=== PATIENT | female | born 1950 | race Caucasian/White ===

== ENCOUNTER → 2017-04-27 | Outpatient (CLI) | payer MEDICARE ==
--- NOTE | 2017-05-02 21:38 | REP ---
Clinical: Decreased pedal pulses. Technique: Real-time velez scale and color Doppler evaluation using linear high frequency transducer. Findings: Velez scale images demonstrate extensive partially calcified atheromatous plaquing and visible narrowing involving the visualized distal aorta through the bifurcation to proximal left internal and external iliac arteries as well as from the left common femoral artery through the visualized mid calf. Doppler interrogation demonstrates monophasic wave patterns with decreased velocities and spectral broadening consistent with diffuse significant stenosis and atherosclerotic disease. Impression: Findings suggesting significant stenosis to the left lower extremity. Signed by Pipe Lucas MD 05/02/2017 09:30 P
== END ==
LOC: M RAD 11:25
PROVIDERS: ATTEND Surgery Vascular Surgery
DX: I70.0 Atherosclerosis of aorta (principal); I70.202 Unspecified atherosclerosis of native arteries of extremities, left leg

== ENCOUNTER → 2017-06-14 | Outpatient (CLI) | payer MEDICARE ==
[2017-06-14 11:12] LABS: MEAN CORPUSCULAR HEMOGLOBIN 30.5 pg (27.0-33.0); MEAN CORPUSCULAR HGB CONC 33.5 g/dl (32.0-36.5); PLATELET COUNT, AUTOMATED 438 10^3/uL (150-450); RED CELL DISTRIBUTION WIDTH 13.5 % (11.5-14.5); WHITE BLOOD COUNT 12.6 10^3/uL (4.0-10.0)
[2017-06-14 11:39] LABS: ANION GAP 9 MEQ/L (8-16); BLOOD UREA NITROGEN 9 MG/DL (7-18); CALCIUM LEVEL 9.5 MG/DL (8.8-10.2); CARBON DIOXIDE LEVEL 24 MEQ/L (21-32); CHLORIDE LEVEL 108 MEQ/L (98-107); CREATININE FOR GFR 0.64 MG/DL (0.55-1.02); GLOMERULAR FILTRATION RATE > 60.0 (>45); GLUCOSE, FASTING 109 MG/DL (80-110); POTASSIUM SERUM 4.7 MEQ/L (3.5-5.1); SODIUM LEVEL 141 MEQ/L (136-145)
== END ==
LOC: M LAB 10:05
PROVIDERS: ATTEND Surgery Vascular Surgery
DX: I70.213 Atherosclerosis of native arteries of extremities with intermittent claudication, bilateral legs (principal)

== ENCOUNTER → 2017-06-27 | Outpatient (CLI) | payer MEDICARE ==
[~2017-06-27] MED LIST: CELE1CAP4 PO; HEPARIN 1,000 UNITS/ML 10ML VIAL (FOR RADIOLOGY& DIALYSIS ONLY) As Ordered ONE; IMOD2CAP PO; ISOVUE-300 61% 50ML VIAL (Q9967) As Ordered ONE; MIDAZOLAM INJ 2 MG/2 ML VIAL (J2250) As Ordered ONE; PROTAMINE SULF INJ 50 MG/5 ML VIAL (J2720) As Ordered ONE; VITA100067 PO; fentaNYL 100 MCG/2 ML INJECTION (J3010) As Ordered ONE
--- NOTE | 2017-07-05 11:54 | REPIR ---
DATE OF PROCEDURE: 06/27/2017 PREPROCEDURE DIAGNOSIS: Left lower extremity claudication. POSTPROCEDURE DIAGNOSIS: Left lower extremity claudication plus aortoiliac arterial atherosclerotic occlusive disease. PROCEDURE: Aortogram, iliofemoral angiogram, bilateral lower extremity angiography, Mynx closure of the right common femoral arteriotomy. SURGEON: Dr. Waqar Rehman. MARKETING COMMUNICATIONS MANAGER: Bree Wing and Lorene Maynard. ANESTHESIA: Local with moderate sedation with 2 mg of Versed, 100 mcg of Fentanyl and 10 mL of 2% lidocaine. ESTIMATED BLOOD LOSS: FLUORO TIME: 1.4 minutes. CONTRAST: 15 mL. SEDATION TIME: From 9:10 a.m. to 9:45 a.m. for a total of 35 minutes. COMPLICATIONS: None. DRAINS: None. SPECIMENS: None. CONTRAST: 18 mL. IMPLANTS: Right femoral artery Mynx closure device. INDICATION: Patient is a 66-year-old female with left lower extremity pain and nonpalpable pulses in the left lower extremity and weak femoral pulses bilaterally. Patient will undergo an angiogram with possible angioplasty and/or stent. Risks, benefits and alternative treatment options were discussed with the patient. PROCEDURE: The patient was taken to the angiography suite and placed supine on the angiography room table and then prepped and draped in a standard surgical fashion. A time out was completed confirming the correct patient, procedure and laterality. The right common femoral artery was then cannulated with a micropuncture needle after anesthetizing the overlying skin with 1% lidocaine. The micropuncture wire was advanced through the micropuncture needle which was upsized to a micropuncture sheath. A Bentson wire was advanced through the micropuncture sheath which was upsized to a #5-Syriac sheath. An Omniflush catheter was placed in the aorta and an aortogram was performed. Catheter was then pulled down to the level of the bifurcation of iliac arteries and an iliofemoral angiogram was performed. Catheter was then removed over a Bentson wire after bilateral lower extremity angiography was performed. A Mynx closure device was used to close the arteriotomy in the right common femoral artery with an additional 10 minutes of adjunctive pressure applied for hemostasis. Dressings were then applied. Patient tolerated the procedure well. All instrument, sponge and needle counts were correct at the end of the case. There were no complications. Dr. Rehman was present for and directed the entire case. Patient was transferred to the holding area and subsequently discharged in stable condition. RADIOLOGIC SUPERVISION INTERPRETATION: The initial aortogram showed complete occlusion of the left common and external iliac artery with reconstitution of the common femoral artery distally. There was severe disease along the course of the right common iliac and external iliac artery with good flow noted in both the right and left common femoral profunda femoris and superficial femoral arteries down to the knee where there was difficulty with visualization due to contrast washout. A Mynx closure device was used to close the arteriotomy in the right common femoral artery.
== END | disposition home or self-care (01) ==
LOC: M IRPRO 08:29
PROVIDERS: ATTEND Surgery Vascular Surgery
DX: I70.212 Atherosclerosis of native arteries of extremities with intermittent claudication, left leg (principal); I70.92 Chronic total occlusion of artery of the extremities; I70.0 Atherosclerosis of aorta
CPT/HCPCS: 36200; 75716; C1760; C1769; C1887; C1894; G0269; J2250; J3010; Q9967

== ENCOUNTER 2017-07-21 12:29 | Inpatient (IN) | payer MEDICARE ==
[~2017-07-21] VITALS: Ht 157.5 cm; Wt 46.6 kg
[~2017-07-21 12:29] MED LIST changes: -HEPARIN 1,000 UNITS/ML 10ML VIAL (FOR RADIOLOGY& DIALYSIS ONLY) As Ordered ONE; -ISOVUE-300 61% 50ML VIAL (Q9967) As Ordered ONE; -MIDAZOLAM INJ 2 MG/2 ML VIAL (J2250) As Ordered ONE; -PROTAMINE SULF INJ 50 MG/5 ML VIAL (J2720) As Ordered ONE; -fentaNYL 100 MCG/2 ML INJECTION (J3010) As Ordered ONE
[2017-07-21] MEDS ORDERED: LR 1,000 ML IV ONE (13:00)
--- NOTE | 2017-07-21 15:28 | HPEPDOC ---
General Date of Admission Jul 21, 2017 at 12:29 Primary Care Physician: A Attending Physician: Waqar Rehman MD Chief Complaint The patient is a 66-year-old female admitted with left lower extremity debilitating claudication, right lower extremity claudication, severe aortoiliac arterial atherosclerotic occlusive disease with complete occlusion of her left common iliac and external iliac arteries. Source: Patient, Old records Exam Limitations: No limitations Severity: Severe History of Present Illness Patient is a 66-year-old female who was initially evaluated for severe debilitating left lower extremity claudication as well as right lower extremity claudication. Patient underwent angiography showing complete occlusion of her left common external iliac artery with reconstitution of the left common femoral artery. He was severe disease in the right external iliac artery and common femoral artery with reconstitution of the right for fundus femoris artery via collaterals which retrograde filling into the common femoral artery and superficial femoral artery. Patient was evaluated and recommendation was to undergo a left axillobifemoral bypass graft to treat her severe aortoiliac atherosclerotic arterial occlusive disease. Home Medications Scheduled Celecoxib (Celebrex) 200 Mg Cap, 200 MG PO BID, (Reported) Vitamin D (Vitamin D) 1,000 Unit Cap, 1,000 UNIT PO BID, (Reported) Scheduled PRN (Imodium A-D) 2 Mg Cap, 2 MG PO PRN PRN for DIARRHEA, (Reported) Allergies Coded Allergies: No Known Allergies (Verified , 07/11/17) Past Medical History Medical History Anxiety Impression Cervical cancer. Surgical History Removal of neck mass Cataract surgery bilaterally Aortogram and Left lower extremity angiography on 06/27/2017 Resection of cervical cancer Family History Significant Family History: Heart disease, Hypertension Father has a history of coronary artery disease and hypertension and is Mother has a history of a brain tumor and is Social History * Smoker: current smoker, greater than 1 pack/day, cigarettes Alcohol: Denies Drugs: denies Recent Travel/Sick Contacts: Denies: Recent travel, Recent sick contacts Psychosocial History: No pertinent psych hx Patient has smoked cigarettes for approximately 30 years and smokes approximately 1 pack per day Review of Symptoms Constitutional: Denies: Chills, Fever, Malaise, Night Sweats, Weakness, Fatigue , Weight Loss, Lethargy, Other Eyes: Denies: Pain, Vision change, Conjunctivae inflammation, Eyelid inflammation, Redness, Other ENT: Denies: Head Aches, Ear Pain, Dysphagia, Sinus Congestion, Post Nasal Drip , Sore Throat, Epistaxis, Other Symptoms Skin: Denies: Rash, Lesions, Jaundice, Bruising, Itching, Dry, Breakdown, Nail Changes, Other Pulmonary: Denies: Dyspnea, Cough, Pleuritic Chest Pain, Other Symptoms Cardiovascular: Denies: Chest Pain, Palpitations, Orthopnea, Paroxysmal Noc. Dyspnea, Edema, Lt Headedness, Other Symptoms Gastrointestinal: Denies: Nausea, Vomiting, Abdominal Pain, Diarrhea, Constipation, Melena, Hematochezia, Other Symptoms Genitourinary: Denies: Dysuria, Frequency, Incontinence, Hematuria, Retention, Other Symptoms Hematologic: Denies: Bruising, Bleeding Excessively, Petecchia, Purpura, Enlarged Lymph Nodes, Other Hematologic Endocrine: Denies: Polydipsia, Polyphagia, Polyuria, Heat Intolerance, Cold Intolerance, Other Endocrine Sx Musculoskeletal: Denies: Neck Pain, Back Pain, Shoulder Pain, Arm Pain, Hand Pain, Leg Pain, Foot Pain, Joint Pain, Muscle Pain, Spasms, Other Symptoms Neurological: Reports: Numbness, Denies: Weakness, Incoordination, Change in speech, Confusion, Seizures, Other Symptoms Psych: Denies: Mood Normal, Anxiety, Depression, Memory Issues, Thoughts of Self Harm, Anger, Thoughts of Harming Other, Other Psych Physical Examination General Exam: Positive: Alert, Cooperative, No Acute Distress Eye Exam: Positive: PERRLA, Conjunctiva & lids normal, EOMI ENT Exam: Positive: Atraumatic, Mucous membr. moist/pink, Pharynx Normal, Tongue Midline Neck Exam: Positive: Supple, +2 carotid pulse wo bruit, Negative: JVD, thyromegaly, Lymphadenopathy, Other Chest Exam: Positive: Clear to auscultation, Normal air movement Heart Exam: Positive: Rate Normal Telemetry: Positive: No significant arrhythmia Abdomen Exam: Positive: Normal bowel sounds, BS Hyperactive, BS Hypoactive, Soft, Other, Negative: Tenderness, Hepatospenomegaly, Mass, Hernia Extremity Exam: Positive: Normal pulses, Negative: Clubbing, Cyanosis, Edema, Tenderness, Swelling, Other Skin Exam: Positive: Nl turgor and temperature, Negative: Rash, Breakdown, Lesion, Pruritus, Other skin issue Neuro Exam: Positive: Normal Speech, Normal Tone, Sensation Intact, Cranial Nerves 3-12 NL Psych Exam: Positive: Mental status NL, Mood NL Other physical findings Patient has nonpalpable pulses in the bilateral lower extremities with dopplerable common femoral popliteal dorsalis pedis and posterior tibial pulses. Vital Signs Vital Signs Date Time Temp Pulse Resp B/P (MAP) Pulse Ox O2 Delivery O2 Flow Rate FiO2 07/21/17 13:58 98.4 104 18 132/72 (92) 94 Room Air Assessment/Plan Patient is a 66-year-old female with significant tobacco history and atherosclerotic aortoiliac occlusive disease with complete occlusion of her left common and external iliac arteries and severe atherosclerotic occlusive disease in the right external iliac artery and common femoral artery. Patient will undergo a left axillobifemoral bypass graft. Risks benefits and alternative treatment options were discussed with the patient. Benefits included but were not limited to hindu of blood flow to the lower extremities with resolution of her symptoms and ability to ambulate better. Alternative treatment options included but were not limited to no intervention. Risks included but were not limited to infection, bleeding, renal failure requiring hemodialysis, possible need for further surgical intervention, pneumothorax, hemothorax, cerebrovascular accident, myocardial infarction, pulmonary embolus, DVT, loss of limb, loss of life and poor outcome. Patient's questions were answered. Patient voices understanding of these risks, benefits and alternative treatment options and agrees to proceed with a left axillobifemoral bypass graft. Plan / VTE VTE Prophylaxis Ordered?: Yes Waqar Rehman MD Jul 21, 2017 15:28
[2017-07-21] MEDS ORDERED: LIDOCAINE 1% SDV INJ 30 ML VIAL As Ordered ONE (18:24)
[2017-07-21] MEDS ORDERED: BUPIVACAINE HCL 0.25% 30 ML VIAL As Ordered ONE (18:24)
[2017-07-21] MEDS ORDERED: THROMBIN SOLN 20,000 UNITS KIT As Ordered ONE (18:24)
[2017-07-21] MEDS ORDERED: PROTAMINE SULF INJ 50 MG/5 ML VIAL (J2720) As Ordered ONE (18:24)
[2017-07-21] MEDS ORDERED: HEPARIN SOD (PORCINE) 5000 UNITS/ML VIAL As Ordered ONE ×2 (18:25→19:43)
[2017-07-21] MEDS ORDERED: PROPOFOL 200 MG/20 ML VIAL As Ordered ONE ×3 (18:27→21:04)
[2017-07-21] MEDS ORDERED: LIDOCAINE 2% INJ 100 MG/5 ML SDV (FOR ANES.) As Ordered ONE (18:27)
[2017-07-21] MEDS ORDERED: ONDANSETRON 4MG/2ML VIAL (J2405) As Ordered ONE (18:27)
[2017-07-21] MEDS ORDERED: KETAMINE HCL 200 MG/20 ML VIAL As Ordered ONE (18:28)
[2017-07-21] MEDS ORDERED: MIDAZOLAM INJ 5 MG/ML VIAL (J2250) As Ordered ONE (18:28)
[2017-07-21] MEDS ORDERED: fentaNYL 100 MCG/2 ML INJECTION (J3010) As Ordered ONE ×2 (18:28→20:24)
[2017-07-21] MEDS ORDERED: dexameTHASONE 4 MG/ML 1ML VIAL (J1100) As Ordered ONE (19:29)
[2017-07-21] MEDS ORDERED: ESMOLOL INJ 100MG/10ML VIAL As Ordered ONE (19:36)
[2017-07-21] MEDS ORDERED: ACETAMINOPHEN TAB 650MG DOSE (2X325MG) PO PRN (22:00)
[2017-07-21] MEDS ORDERED: METOCLOPRAMIDE INJ 10MG/2ML VIAL (J2765) IV PRN (22:00)
[2017-07-21] MEDS ORDERED: ONDANSETRON 4MG/2ML VIAL (J2405) IV PRN (22:00)
[2017-07-21] MEDS: LR 1,000 ML IV SCH ×3 (22:00→23:00)
[2017-07-21] MEDS ORDERED: MEPERIDINE INJ 25 MG/ML VIAL (J2175) IV PRN (22:00)
[2017-07-21] MEDS ORDERED: PERCOCET 5MG/325MG TAB PO PRN (22:00)
[2017-07-21] MEDS ORDERED: fentaNYL 100 MCG/2 ML INJECTION (J3010) IV PRN (22:00)
[2017-07-21 22:48] VITALS: BP 152/70
[2017-07-21] MEDS: LIDOCAINE 1% MDV 20ML VIAL SQ PRN ×2 (22:56→23:00)
[2017-07-21 23:18] VITALS: BP 138/73
[2017-07-22] VITALS (9 sets, daily range): BP systolic 92–121; BP diastolic 57–67
[2017-07-22] MEDS: NORCO, ANEXSIA 5/325MG TABLET (HYDROcodone/ACETAMINOPHEN) PO PRN ×3 (03:58→22:33)
[2017-07-22] MEDS: HEPARIN SOD (PORCINE) 5000 UNITS/ML VIAL SC SCH ×2 (09:07→22:32)
[2017-07-22] MEDS: ONDANSETRON 4MG/2ML VIAL (J2405) IV PRN (17:26)
[2017-07-23] MEDS: ONDANSETRON 4MG/2ML VIAL (J2405) IV PRN (00:19)
[2017-07-23 02:00] VITALS: BP 124/59
[2017-07-23] MEDS: NORCO, ANEXSIA 5/325MG TABLET (HYDROcodone/ACETAMINOPHEN) PO PRN ×3 (03:07→16:43)
[2017-07-23 06:00] VITALS: BP 126/57
[2017-07-23] MEDS: HEPARIN SOD (PORCINE) 5000 UNITS/ML VIAL SC SCH ×2 (08:34→21:07)
[2017-07-23] MEDS ORDERED: INFLUENZA VIRUS VACCINE HIGH DOSE 0.5 ML SYRINGE (90662) IM ONE (09:00)
[2017-07-23] MEDS ORDERED: PREVNAR 13 VACCINE SYRINGE (CPT CODE:90670) IM ONE (09:00)
[2017-07-23 10:00] VITALS: BP 106/57
[2017-07-23 14:00] VITALS: BP 102/58
[2017-07-23 18:00] VITALS: BP 103/61
[2017-07-23 22:00] VITALS: BP 105/59
[2017-07-24] MEDS: NORCO, ANEXSIA 5/325MG TABLET (HYDROcodone/ACETAMINOPHEN) PO PRN ×3 (01:31→21:59)
[2017-07-24 02:00] VITALS: BP 93/52
[2017-07-24 06:00] VITALS: BP 102/59
[2017-07-24] MEDS: HEPARIN SOD (PORCINE) 5000 UNITS/ML VIAL SC SCH ×2 (08:38→21:57)
[2017-07-24 10:00] VITALS: BP 103/52
[2017-07-24 14:00] VITALS: BP 131/68
[2017-07-24 22:00] VITALS: BP 111/59
[2017-07-25 02:00] VITALS: BP 111/59
[2017-07-25] MEDS: NORCO, ANEXSIA 5/325MG TABLET (HYDROcodone/ACETAMINOPHEN) PO PRN ×3 (02:03→23:11)
[2017-07-25 06:00] VITALS: BP 108/68
[2017-07-25] MEDS ORDERED: ONDANSETRON 4 MG TAB (S0181) PO PRN (08:30)
[2017-07-25 10:00] VITALS: BP 90/50
[2017-07-25] MEDS: SENOKOT S TAB PO SCH ×2 (10:45→20:50)
[2017-07-25] MEDS: HEPARIN SOD (PORCINE) 5000 UNITS/ML VIAL SC SCH ×2 (10:46→20:49)
[2017-07-25] MEDS: METOPROLOL TART 25 MG TABLET PO SCH ×2 (11:34→20:50)
[2017-07-25 13:54] VITALS: BP 91/55
[2017-07-25 18:00] VITALS: BP 107/53
[2017-07-25 22:00] VITALS: BP 135/60
[2017-07-26 02:00] VITALS: BP 106/57
[2017-07-26 06:00] VITALS: BP 104/56
[2017-07-26] MEDS: NORCO, ANEXSIA 5/325MG TABLET (HYDROcodone/ACETAMINOPHEN) PO PRN ×2 (06:42→21:46)
[2017-07-26] MEDS: SENOKOT S TAB PO SCH ×2 (08:48→21:00)
[2017-07-26 09:00] VITALS: BP 126/62
[2017-07-26] MEDS: METOPROLOL TART 25 MG TABLET PO SCH ×2 (09:00→21:45)
[2017-07-26] MEDS: HEPARIN SOD (PORCINE) 5000 UNITS/ML VIAL SC SCH ×2 (09:00→21:43)
[2017-07-26 22:00] VITALS: BP 103/56
[2017-07-27] VITALS (7 sets, daily range): BP systolic 90–118; BP diastolic 44–61
[2017-07-27] MEDS: SENOKOT S TAB PO SCH ×2 (09:00→20:38)
[2017-07-27] MEDS: METOPROLOL TART 25 MG TABLET PO SCH ×2 (10:26→20:38)
[2017-07-28] MEDS: NORCO, ANEXSIA 5/325MG TABLET (HYDROcodone/ACETAMINOPHEN) PO PRN (00:56)
[2017-07-28 06:00] VITALS: BP 102/51
[2017-07-28] MEDS: SENOKOT S TAB PO SCH (08:16)
[2017-07-28 08:34] VITALS: BP 95/57
[2017-07-28] MEDS: METOPROLOL TART 25 MG TABLET PO SCH (08:34)
[2017-07-28 10:00] VITALS: BP 90/55
[2017-07-28] MEDS ORDERED: NORCOTAB PO (11:20)
[2017-07-28] MEDS ORDERED: METO1TAB87 PO (11:20)
--- NOTE | 2017-08-10 20:55 | DSES ---
DATE OF ADMISSION: 07/21/2017 DATE OF DISCHARGE: 07/28/2017 PROCEDURES PERFORMED DURING ADMISSION: Left axillobifemoral bypass graft. HOSPITAL COURSE: The patient was admitted. Underwent a left axillobifemoral bypass graft for severe aortoiliac occlusive disease and bilateral lower extremity claudication. Patient did well postoperatively and was near nonambulatory upon admission, but by the end of her hospitalization the patient was ambulating without pain and with much better ease. Patient was discharged to home with instructions to followup in 1 week.
--- NOTE | 2017-08-11 12:13 | RO ---
DATE OF PROCEDURE: 07/21/2017 PREPROCEDURE DIAGNOSES: Aortoiliac occlusive disease with severe atherosclerotic occlusive disease in the right common and external iliac artery, occlusion of the left common iliac, external iliac and common femoral artery. Left lower extremity claudication. History of cigarettes. POSTPROCEDURE DIAGNOSES: Aortoiliac occlusive disease with severe atherosclerotic occlusive disease in the right common and external iliac artery, occlusion of the left common iliac, external iliac and common femoral artery. Left lower extremity claudication. History of cigarettes. PROCEDURE: Left axillobifemoral bypass grafting with 8 mm Propaten PTFE graft. ATTENDING SURGEON: Dr. Michael Remhan SUPERVISOR TYPE BAR AND SEGMENT: None. INDICATION: The patient is a 66-year-old female who presented with left lower extremity claudication and unstable knee, as well as buttock and thigh pain. The patient also complained of mild right lower extremity claudication. The patient was initially evaluated for a left knee total knee arthroplasty and was found to have no pulses and poor perfusion in her lower extremities and was sent for vascular evaluation. The patient underwent an ultrasound showing monophasic flow in both lower extremities and subsequently underwent an angiogram showing complete occlusion of her left common iliac, external iliac, and common femoral artery with reconstitution of the profunda femoris and superficial femoral artery on the left. The right common and external iliac artery showed high grade near occlusive stenosis as well. The patient was evaluated and felt to be a good candidate for a left axillobifemoral bypass, possible right axillobifemoral bypass. ANESTHESIA: Local MAC. ESTIMATED BLOOD LOSS: 200 mL. IV FLUIDS: 1200 mL. HEPARIN: 6000 units. COMPLICATIONS: None. DRAINS: None. SPECIMENS NONE: IMPLANTS: Left axillobifemoral bypass graft. PROCEDURE: The patient was taken to the operating room and placed supine on the operating room table and prepped and draped in a standard surgical fashion. Bilateral common femoral arterial exposures were performed through oblique incisions in the inguinal region. The left axillary artery was exposed through an infraclavicular incision on the left. The graft was tunneled from the axillary artery to the bilateral femoral arteries, after which the graft was anastomosed to the axillary artery in an end to side fashion using #6-0 Prolene suture. The graft was then anastomosed to the bilateral common femoral arteries in an end to side fashion using #6-0 Prolene suture. Flow was reestablished with good flow through the graft into both common femoral arteries and distally with improved perfusion of the lower extremities. The incisions were closed using #2-0 Vicryl to approximate the deeper layers and marilu to approximate the skin. Dressings were applied. The patient tolerated the procedure well. All instrument, sponge, and needle counts were correct at the end of the case. There were no complications. Dr. Rehman was present for and directed the entire case. The patient was transferred to the recovery room and subsequently to the floor in stable condition.
== END 2017-07-28 13:28 | disposition home or self-care (01) | DRG 253 ==
LOC: M OR 12:29 → M MSPAV 21:45
PROVIDERS: ADMIT Surgery Vascular Surgery; ATTEND Surgery Vascular Surgery
PROC: 03160J8 Bypass Left Axillary Artery to Bilateral Upper Leg Artery with Synthetic Substitute, Open Approach (ICD-10-PCS; principal; 2017-07-21 15:45)
DX: I74.09 Other arterial embolism and thrombosis of abdominal aorta (principal); I74.5 Embolism and thrombosis of iliac artery; I70.213 Atherosclerosis of native arteries of extremities with intermittent claudication, bilateral legs; F17.210 Nicotine dependence, cigarettes, uncomplicated; Z79.899 Other long term (current) drug therapy; Z98.41 Cataract extraction status, right eye; Z98.42 Cataract extraction status, left eye; Z85.41 Personal history of malignant neoplasm of cervix uteri

== ENCOUNTER → 2017-09-19 | Outpatient (CLI) | payer MEDICARE | LOC: M RAD 12:12 | DX: I70.213 Atherosclerosis of native arteries of extremities with intermittent claudication, bilateral legs (principal); Z95.5 Presence of coronary angioplasty implant and graft | CPT/HCPCS: 93923 ==

== ENCOUNTER 2017-10-09 12:02 | Emergency (ER) | payer MEDICARE ==
[2017-10-09] MEDS: PERCOCET 5MG/325MG TAB PO (13:10)
[2017-10-09 13:17] LABS: HEMATOCRIT 38.7 % (36.0-47.0); HEMOGLOBIN 12.8 g/dl (12.0-16.0); MEAN CORPUSCULAR HGB CONC 33.1 g/dl (32.0-36.5); MEAN CORPUSCULAR VOLUME 87.8 fl (80.0-96.0); PLATELET COUNT, AUTOMATED 347 10^3/uL (150-450); RED BLOOD COUNT 4.41 10^6/uL (4.00-5.40); RED CELL DISTRIBUTION WIDTH 13.7 % (11.5-14.5); WHITE BLOOD COUNT 11.4 10^3/uL (4.0-10.0)
[2017-10-09 13:33] LABS: INR 0.99; PROTHROMBIN TIME 13.2 SECONDS (12.4-14.5)
[2017-10-09 13:50] LABS: ANION GAP 8 MEQ/L (8-16); BLOOD UREA NITROGEN 9 MG/DL (7-18); CALCIUM LEVEL 9.2 MG/DL (8.8-10.2); CARBON DIOXIDE LEVEL 24 MEQ/L (21-32); CHLORIDE LEVEL 109 MEQ/L (98-107); CREATININE FOR GFR 0.45 MG/DL (0.55-1.30); GLOMERULAR FILTRATION RATE > 60.0 (>45); GLUCOSE, FASTING 110 MG/DL (70-100); POTASSIUM SERUM 3.9 MEQ/L (3.5-5.1); SODIUM LEVEL 141 MEQ/L (136-145)
== END 2017-10-09 15:05 | disposition home or self-care (01) ==
LOC: M ED 12:02
DX: M17.11 Unilateral primary osteoarthritis, right knee (principal); M70.51 Other bursitis of knee, right knee; I10 Essential (primary) hypertension; F17.210 Nicotine dependence, cigarettes, uncomplicated; Z79.899 Other long term (current) drug therapy; Z95.5 Presence of coronary angioplasty implant and graft
CPT/HCPCS: 73564

== ENCOUNTER 2019-06-16 08:21 | Emergency (ER) | payer MEDICARE ==
[~2019-06-16] VITALS: Ht 157.5 cm; Wt 31.8 kg
[~2019-06-16 08:21] MED LIST changes: +HYDR-3715 PO; +METO1TAB87 PO
[2019-06-16] MEDS ORDERED: diphenhydrAMINE INJ 50MG/ML VIAL (J1200) IV ONE (09:15)
[2019-06-16] MEDS ORDERED: methylPREDNISolone INJ 125 MG/2 ML VIAL (J2930) IV ONE (09:15)
[2019-06-16] MEDS ORDERED: FAMOTIDINE IV BAG 20 MG in IV 1 EA IV ONE (09:15)
[2019-06-16 09:30] LABS: BASO # 0.1 10^3/uL (0.0-0.2); BASO % 1.4 % (0.0-1.0); EOS # 0.3 10^3/uL (0.0-0.5); EOS % 2.9 % (0.0-3.0); HEMATOCRIT 38.4 % (36.0-47.0); HEMOGLOBIN 13.1 g/dl (12.0-15.5); LYMPH # 1.4 10^3/uL (1.5-5.0); LYMPH % 15.1 % (24.0-44.0); MEAN CORPUSCULAR HEMOGLOBIN 31.7 pg (27.0-33.0); MEAN CORPUSCULAR HGB CONC 34.1 g/dl (32.0-36.5); MONO # 1.1 10^3/uL (0.0-0.8); MONO % 11.7 % (0.0-5.0); NEUTROPHILS # 6.3 10^3/uL (1.5-8.5); NEUTROPHILS % 68.8 % (36.0-66.0); PLATELET COUNT, AUTOMATED 247 10^3/uL (150-450); RED BLOOD COUNT 4.13 10^6/uL (4.00-5.40); WHITE BLOOD COUNT 9.1 10^3/uL (4.0-10.0)
[2019-06-16 10:01] LABS: BLOOD UREA NITROGEN 9 MG/DL (7-18); CALCIUM LEVEL 9.3 MG/DL (8.8-10.2); CARBON DIOXIDE LEVEL 24 MEQ/L (21-32); CHLORIDE LEVEL 106 MEQ/L (98-107); CREATININE FOR GFR 0.61 MG/DL (0.55-1.30); GLOMERULAR FILTRATION RATE > 60.0 (>39); GLUCOSE, FASTING 162 MG/DL (70-100); POTASSIUM SERUM 4.1 MEQ/L (3.5-5.1); SODIUM LEVEL 135 MEQ/L (136-145)
[2019-06-16] MEDS ORDERED: PRED10TA2 PO (10:09)
[2019-06-16 10:10] VITALS: BP 134/65
== END 2019-06-16 10:18 | disposition home or self-care (01) ==
LOC: M ED 08:21
DX: H02.843 Edema of right eye, unspecified eyelid (principal); T78.40XA Allergy, unspecified, initial encounter; F17.200 Nicotine dependence, unspecified, uncomplicated
CPT/HCPCS: 80048; 85025; 86140; 96361; 96374; 96375; 99284; J1200; J2930

== ENCOUNTER 2021-09-13 16:08 | Emergency (ER) | payer MEDICARE ==
[~2021-09-13] VITALS: Ht 157.5 cm; Wt 34.1 kg
[2021-09-13 19:37] LABS: MEAN CORPUSCULAR HEMOGLOBIN 31.8 pg (27.0-33.0); MEAN CORPUSCULAR HGB CONC 32.7 g/dl (32.0-36.5); MEAN CORPUSCULAR VOLUME 97.2 fl (80.0-96.0); PLATELET COUNT, AUTOMATED 283 10^3/uL (150-450); RED BLOOD COUNT 1.07 10^6/uL (4.00-5.40)
[2021-09-13 19:38] LABS: HEMATOCRIT 10.4 % (36.0-47.0); HEMOGLOBIN 3.4 g/dl (12.0-15.5)
[2021-09-13 19:56] LABS: INR 1.23; PROTHROMBIN TIME 15.9 SECONDS (12.7-14.5)
[2021-09-13 19:59] LABS: ALBUMIN 3.5 GM/DL (3.2-5.2); ALT/SGPT 44 U/L (12-78); BILIRUBIN,DIRECT < 0.1 MG/DL (0.0-0.2); BILIRUBIN,TOTAL 0.2 MG/DL (0.2-1.0); BLOOD UREA NITROGEN 24 MG/DL (7-18); CALCIUM LEVEL 8.8 MG/DL (8.8-10.2); CARBON DIOXIDE LEVEL 22 MEQ/L (21-32); CHLORIDE LEVEL 110 MEQ/L (98-107); CREATININE FOR GFR 0.95 MG/DL (0.55-1.30); FREE T4 1.18 NG/DL (0.76-1.46); GLOMERULAR FILTRATION RATE > 60.0 (>39); GLUCOSE, FASTING 109 MG/DL (70-100); LIPASE 130 U/L (73-393); NT-PRO BNP 1572 PG/ML (<125); POTASSIUM SERUM 4.7 MEQ/L (3.5-5.1); SODIUM LEVEL 140 MEQ/L (136-145); TOTAL PROTEIN 6.7 GM/DL (6.4-8.2)
[2021-09-13 20:10] LABS: ERYTHROCYTE SEDIMENTATION RATE 126 mm/hr (0-30)
[2021-09-13 20:24] LABS: EOSINOPHILS 1 % (0-3); LYMPHOCYTES 18 % (16-44); METAMYELOCYTES 4 % (0-0); MONOCYTES 5 % (0-5); MYELOCYTES 4 % (0-0); NEUTROPHILS 62 % (28-66)
[2021-09-13 20:36] LABS: ANISOCYTOSIS 2+; POIKILOCYTOSIS 2+; POLYCHROMASIA 1+; SMUDGE CELLS 1+
[2021-09-13 20:37] LABS: PLATELET ESTIMATE NORMAL (NORMAL)
[2021-09-13 21:59] VITALS: BP 129/60
[2021-09-13 22:16] VITALS: BP 128/61
[2021-09-13 23:58] VITALS: BP 158/67
[2021-09-14 00:32] VITALS: BP 131/61
[2021-09-14 00:47] VITALS: BP 136/64
[2021-09-14 02:40] VITALS: BP 130/63
== END 2021-09-14 02:56 | disposition left against medical advice (07) ==
LOC: M ED 16:08
DX: C95.00 Acute leukemia of unspecified cell type not having achieved remission (principal); D64.9 Anemia, unspecified; M06.9 Rheumatoid arthritis, unspecified; M00.061 Staphylococcal arthritis, right knee; Z85.41 Personal history of malignant neoplasm of cervix uteri; F17.210 Nicotine dependence, cigarettes, uncomplicated; Z79.899 Other long term (current) drug therapy
CPT/HCPCS: 36415; 36430; 71045; 80053; 80503; 83010; 83690; 83880; 84439; 84443; 85025; 85610; 85652; 85730; 86140; 86850; 86900; 86901; 86920; 87040; 93005; 93041; 94760; 99285; G0463; P9016

== ENCOUNTER → 2021-09-13 | Outpatient (CLI) | payer MEDICARE ==
[~2021-09-13] MED LIST changes: +PRED10TA2 PO
[2021-09-13 15:10] LABS: MEAN CORPUSCULAR HEMOGLOBIN 32.4 pg (27.0-33.0); MEAN CORPUSCULAR HGB CONC 32.4 g/dl (32.0-36.5); PLATELET COUNT, AUTOMATED 306 10^3/uL (150-450); RED BLOOD COUNT 1.11 10^6/uL (4.00-5.40); WHITE BLOOD COUNT 23.2 10^3/uL (4.0-10.0)
[2021-09-13 15:13] LABS: HEMATOCRIT 11.1 % (36.0-47.0)
[2021-09-13 15:27] LABS: ALBUMIN 3.5 GM/DL (3.2-5.2); BILIRUBIN,TOTAL 0.2 MG/DL (0.2-1.0); C REACTIVE PROTEIN QUANTITATIV 0.3 MG/DL (0.00-0.30); CREATININE FOR GFR 1.03 MG/DL (0.55-1.30); GLOMERULAR FILTRATION RATE 56.1 (>39); POTASSIUM SERUM 5.1 MEQ/L (3.5-5.1); TOTAL PROTEIN 6.7 GM/DL (6.4-8.2)
[2021-09-13 15:31] LABS: HEMOGLOBIN 3.6 g/dl (12.0-15.5)
[2021-09-13 15:55] LABS: BASOPHILS 1 % (0-1); BLAST CELLS 1 % (0-0); LYMPHOCYTES 9 % (16-44); METAMYELOCYTES 2 % (0-0); MONOCYTES 14 % (0-5); MYELOCYTES 4 % (0-0); NEUTROPHILS 67 % (28-66)
[2021-09-13 15:56] LABS: OVALOCYTES 1+
[2021-09-13 15:57] LABS: GIANT PLATELETS 1+; PLATELET ESTIMATE NORMAL (NORMAL)
[2021-09-13 16:00] LABS: ERYTHROCYTE SEDIMENTATION RATE 128 mm/hr (0-30)
== END ==
LOC: M PLALAB 12:03
PROVIDERS: ATTEND Internal Medicine Infectious Disease
DX: M00.061 Staphylococcal arthritis, right knee (principal)

== ENCOUNTER → 2021-09-21 | Outpatient (CLI) | payer MEDICARE | LOC: M LAB 16:08 | PROVIDERS: ATTEND Nurse Practitioner Adult Health | DX: D64.9 Anemia, unspecified (principal) ==

== ENCOUNTER → 2021-10-11 | Outpatient (CLI) | payer MEDICARE ==
[2021-10-11 17:33] LABS: BASO # 0.1 10^3/uL (0.0-0.2); BASO % 0.8 % (0.0-1.0); EOS # 0.2 10^3/uL (0.0-0.5); EOS % 1.8 % (0.0-3.0); HEMATOCRIT 36.9 % (36.0-47.0); HEMOGLOBIN 11.3 g/dl (12.0-15.5); LYMPH # 1.7 10^3/uL (1.5-5.0); LYMPH % 13.1 % (24.0-44.0); MEAN CORPUSCULAR HGB CONC 30.6 g/dl (32.0-36.5); MEAN CORPUSCULAR VOLUME 97.9 fl (80.0-96.0); MONO # 0.9 10^3/uL (0.0-0.8); MONO % 6.8 % (2.0-8.0); NEUTROPHILS # 10.1 10^3/uL (1.5-8.5); NEUTROPHILS % 77.1 % (36.0-66.0); PLATELET COUNT, AUTOMATED 390 10^3/uL (150-450); RED BLOOD COUNT 3.77 10^6/uL (4.00-5.40); WHITE BLOOD COUNT 13.1 10^3/uL (4.0-10.0)
[2021-10-11 17:50] LABS: ALBUMIN 3.5 GM/DL (3.2-5.2); ALT/SGPT 28 U/L (12-78); BILIRUBIN,TOTAL 0.3 MG/DL (0.2-1.0); BLOOD UREA NITROGEN 19 MG/DL (7-18); CALCIUM LEVEL 9.5 MG/DL (8.8-10.2); CARBON DIOXIDE LEVEL 25 MEQ/L (21-32); CHLORIDE LEVEL 107 MEQ/L (98-107); CREATININE FOR GFR 0.61 MG/DL (0.55-1.30); FERRITIN 86 NG/ML (8-252); GLOMERULAR FILTRATION RATE > 60.0 (>39); GLUCOSE, FASTING 94 MG/DL (70-100); IRON (FE) 58 UG/DL (50-170); PERCENT SATURATION 15.3 % (13.2-45.0); POTASSIUM SERUM 4.8 MEQ/L (3.5-5.1); SODIUM LEVEL 139 MEQ/L (136-145); TOTAL IRON BINDING CAPACITY 378 UG/DL (250-450); TOTAL PROTEIN 6.8 GM/DL (6.4-8.2)
== END ==
LOC: M PLALAB 15:26
PROVIDERS: ATTEND Physician Assistant
DX: D64.9 Anemia, unspecified (principal)

== ENCOUNTER → 2021-10-26 | Outpatient (REF) | payer MEDICARE ==
[~2021-10-26] MED LIST changes: +ACET650T15 PO; +ATOR80TA59 PO; +CELE1CAP9 PO; +IRON65TA2 PO; +PANT40TA29 PO; +VITA100093 PO
[2021-10-26 17:59] LABS: APPEARANCE, URINE CLEAR (CLEAR); BACTERIA, URINE AUTO 1+ (NEGATIVE); BILIRUBIN, URINE AUTO NEGATIVE (NEGATIVE); BLOOD, URINE BLOOD 1+ (NEGATIVE); COLOR, URINE STRAW (YELLOW); GLUCOSE, URINE (UA) AUTO NEGATIVE (NEGATIVE); KETONE, URINE AUTO NEGATIVE (NEGATIVE); LEUKOCYTE ESTERASE, URINE AUTO 1+ (NEGATIVE); NITRITE, URINE AUTO NEGATIVE (NEGATIVE); PROTEIN, URINE AUTO NEGATIVE (NEGATIVE); RBC, URINE AUTO 2 /HPF (0-3); SPECIFIC GRAVITY URINE AUTO 1.005 (1.002-1.035); SQUAMOUS EPITHELIAL CELL UR AU 0 /HPF (0-6); UROBILINOGEN, URINE AUTO 0.2 mg/dL (0.0-2.0); WBC, URINE AUTO 14 /HPF (0-3)
== END ==
LOC: M SMT 17:07
PROVIDERS: ATTEND Physician Assistant
DX: R31.9 Hematuria, unspecified (principal)

== ENCOUNTER 2021-11-20 15:13 | Inpatient (IN) | payer MEDICARE ==
[~2021-11-20] VITALS: Ht 157.5 cm; Wt 33.5 kg
[~2021-11-20 15:13] MED LIST changes: -ACET650T15 PO; -ATOR80TA59 PO; -CELE1CAP9 PO; -IRON65TA2 PO; -PANT40TA29 PO; -VITA100093 PO
[2021-11-20] MEDS ORDERED: IRON65TA2 PO (15:21)
[2021-11-20] MEDS ORDERED: ATOR80TA59 PO (15:21)
[2021-11-20] MEDS ORDERED: PANT40TA29 PO (15:21)
[2021-11-20] MEDS ORDERED: NS 1,000 ML IV ONE (16:00)
[2021-11-20 16:28] LABS: BASO # 0.1 10^3/uL (0.0-0.2); BASO % 0.8 % (0.0-1.0); EOS # 0.2 10^3/uL (0.0-0.5); EOS % 1.4 % (0.0-3.0); HEMATOCRIT 32.6 % (36.0-47.0); HEMOGLOBIN 10.4 g/dl (12.0-15.5); LYMPH # 1.9 10^3/uL (1.5-5.0); LYMPH % 13.1 % (24.0-44.0); MEAN CORPUSCULAR HEMOGLOBIN 30.1 pg (27.0-33.0); MEAN CORPUSCULAR HGB CONC 31.9 g/dl (32.0-36.5); MEAN CORPUSCULAR VOLUME 94.5 fl (80.0-96.0); MONO % 7.1 % (2.0-8.0); NEUTROPHILS % 77.2 % (36.0-66.0); PLATELET COUNT, AUTOMATED 391 10^3/uL (150-450); RED BLOOD COUNT 3.45 10^6/uL (4.00-5.40); WHITE BLOOD COUNT 14.3 10^3/uL (4.0-10.0)
[2021-11-20] MEDS ORDERED: CELE1CAP9 PO (16:51)
[2021-11-20 16:57] LABS: INR 1.04
[2021-11-20] MEDS ORDERED: VITA100093 PO (17:03)
[2021-11-20] MEDS ORDERED: HOME MED LIST COMPLETE! XX SCH (17:05)
[2021-11-20 17:19] LABS: BLOOD UREA NITROGEN 18 MG/DL (7-18); CALCIUM LEVEL 9.2 MG/DL (8.8-10.2); CARBON DIOXIDE LEVEL 27 MEQ/L (21-32); CHLORIDE LEVEL 108 MEQ/L (98-107); GLOMERULAR FILTRATION RATE > 60.0 (>39); GLUCOSE, FASTING 115 MG/DL (70-100); POTASSIUM SERUM 4.3 MEQ/L (3.5-5.1); SODIUM LEVEL 141 MEQ/L (136-145)
[2021-11-20 17:28] LABS: RSV AMPLIFICATION NEGATIVE (NEGATIVE)
[2021-11-20] MEDS ORDERED: ISOVUE-370 76% 100ML VIAL As Ordered ONE (17:54)
[2021-11-20] MEDS ORDERED: PANTOPRAZOLE 20 MG TAB PO ONE (18:05)
[2021-11-20] MEDS ORDERED: NICOTINE 21MG/24HR 1 EA TRANSDERMAL TD PRN (21:00)
[2021-11-20] MEDS ORDERED: NS 1,000 ML IV SCH (21:25)
[2021-11-20 21:43] LABS: HEMATOCRIT 26.9 % (36.0-47.0); HEMOGLOBIN 8.6 g/dl (12.0-15.5)
[2021-11-20 22:05] VITALS: BP 154/73
[2021-11-20] MEDS ORDERED: ACETAMINOPHEN TAB 650MG DOSE (2X325MG) PO PRN (22:30)
[2021-11-20] MEDS: cefTRIAXone SOD 1 GM in D5W MINI-BAG PLUS 50 ML IV SCH (23:06)
[2021-11-20] MEDS: VITAMIN D 1,000 INTERNATIONAL UNITS TABLET PO SCH (23:06)
[2021-11-21] VITALS (10 sets, daily range): BP systolic 113–144; BP diastolic 55–67
[2021-11-21 03:05] LABS: BASO # 0.1 10^3/uL (0.0-0.2); BASO % 0.8 % (0.0-1.0); EOS # 0.2 10^3/uL (0.0-0.5); EOS % 1.4 % (0.0-3.0); HEMATOCRIT 25.5 % (36.0-47.0); HEMOGLOBIN 8.2 g/dl (12.0-15.5); LYMPH # 1.7 10^3/uL (1.5-5.0); LYMPH % 14.2 % (24.0-44.0); MEAN CORPUSCULAR HEMOGLOBIN 30.3 pg (27.0-33.0); MEAN CORPUSCULAR HGB CONC 32.2 g/dl (32.0-36.5); MEAN CORPUSCULAR VOLUME 94.1 fl (80.0-96.0); MONO % 8.5 % (2.0-8.0); NEUTROPHILS # 8.9 10^3/uL (1.5-8.5); NEUTROPHILS % 74.8 % (36.0-66.0); PLATELET COUNT, AUTOMATED 320 10^3/uL (150-450); RED BLOOD COUNT 2.71 10^6/uL (4.00-5.40); WHITE BLOOD COUNT 11.9 10^3/uL (4.0-10.0)
[2021-11-21 03:31] LABS: BLOOD UREA NITROGEN 15 MG/DL (7-18); CALCIUM LEVEL 8.7 MG/DL (8.8-10.2); CARBON DIOXIDE LEVEL 26 MEQ/L (21-32); CHLORIDE LEVEL 113 MEQ/L (98-107); CREATININE FOR GFR 0.58 MG/DL (0.55-1.30); GLOMERULAR FILTRATION RATE > 60.0 (>39); GLUCOSE, FASTING 104 MG/DL (70-100); POTASSIUM SERUM 3.8 MEQ/L (3.5-5.1); SODIUM LEVEL 144 MEQ/L (136-145)
[2021-11-21 07:39] LABS: HEMATOCRIT 30.7 % (36.0-47.0); HEMOGLOBIN 9.9 g/dl (12.0-15.5)
[2021-11-21] MEDS ORDERED: MORPHINE 4 MG/ML 1ML VIAL/SYRINGE IV ONE (08:35)
[2021-11-21] MEDS ORDERED: MORPHINE 2 MG/ML 1ML VIAL IV ONE (08:50)
[2021-11-21] MEDS: VITAMIN D 1,000 INTERNATIONAL UNITS TABLET PO SCH ×2 (09:10→19:56)
[2021-11-21] MEDS: PANTOPRAZOLE 40MG VIAL IV SCH ×2 (09:10→19:57)
[2021-11-21] MEDS: FERROUS SULFATE 325MG TAB PO SCH (09:10)
[2021-11-21 15:15] LABS: HEMATOCRIT 28.7 % (36.0-47.0); HEMOGLOBIN 9.2 g/dl (12.0-15.5)
[2021-11-21 22:09] LABS: HEMATOCRIT 26.5 % (36.0-47.0); HEMOGLOBIN 8.6 g/dl (12.0-15.5)
[2021-11-21] MEDS: cefTRIAXone SOD 1 GM in D5W MINI-BAG PLUS 50 ML IV SCH (22:39)
[2021-11-22] VITALS: BP 142/63
[2021-11-22 02:41] LABS: HEMATOCRIT 26.3 % (36.0-47.0); HEMOGLOBIN 8.5 g/dl (12.0-15.5)
[2021-11-22 04:00] VITALS: BP 166/73
[2021-11-22 06:00] VITALS: BP 150/73
[2021-11-22] MEDS: VITAMIN D 1,000 INTERNATIONAL UNITS TABLET PO SCH ×2 (08:07→20:04)
[2021-11-22] MEDS: FERROUS SULFATE 325MG TAB PO SCH (08:07)
[2021-11-22] MEDS: PANTOPRAZOLE 40MG VIAL IV SCH ×2 (08:08→20:04)
[2021-11-22 08:13] VITALS: BP 135/63
[2021-11-22 09:07] LABS: HEMATOCRIT 26.6 % (36.0-47.0); HEMOGLOBIN 8.7 g/dl (12.0-15.5)
[2021-11-22] MEDS ORDERED: dexameTHASONE 4 MG/ML 1ML VIAL (J1100 PER 1MG) As Ordered ONE (13:33)
[2021-11-22] MEDS ORDERED: LIDOCAINE 2% 100MG/5ML SDV (FOR ANES.) As Ordered ONE (13:33)
[2021-11-22] MEDS ORDERED: ONDANSETRON 4MG/2ML VIAL As Ordered ONE (13:33)
[2021-11-22] MEDS ORDERED: propofoL 200 MG/20 ML VIAL As Ordered ONE (13:33)
[2021-11-22] MEDS ORDERED: ACETAMINOPHEN 1000MG 100ML IV BTL (OFIRMEV) (J0131 PER 10MG) As Ordered ONE (13:33)
[2021-11-22] MEDS ORDERED: METOCLOPRAMIDE INJ 10MG/2ML VIAL (J2765 PER 1) As Ordered ONE (13:33)
[2021-11-22] MEDS ORDERED: MIDAZOLAM INJ 2MG/2ML VIAL (J2250 PER 1MG) As Ordered ONE (13:34)
[2021-11-22] MEDS ORDERED: fentaNYL 100 MCG/2 ML INJECTION As Ordered ONE (13:34)
[2021-11-22] MEDS ORDERED: ceFAZolin 1GM VIAL (J0690 PER 500MG) As Ordered ONE (13:52)
[2021-11-22] MEDS ORDERED: MEPERIDINE INJ 25 MG/ML VIAL (J2175) IV PRN (15:10)
[2021-11-22] MEDS ORDERED: HYDROMORPHONE HCL 0.5 MG/ 0.5 ML SYRINGE (J1170 PER 1) IV PRN (15:10)
[2021-11-22] MEDS ORDERED: ONDANSETRON 4MG/2ML VIAL IV PRN (15:10)
[2021-11-22] MEDS ORDERED: PROMETHAZINE 25MG/ML 1ML VIAL IV PRN (15:10)
[2021-11-22] MEDS ORDERED: LR 1,000 ML IV SCH (15:10)
[2021-11-22] MEDS ORDERED: oxyCODONE 5MG TAB PO PRN (15:10)
[2021-11-22 15:15] VITALS: BP 128/60
[2021-11-22] MEDS ORDERED: LR 500 ML IV SCH (15:25)
[2021-11-22] MEDS: CEPHALEXIN 250MG CAPSULE PO SCH ×2 (17:47→20:04)
[2021-11-22 18:50] LABS: HEMATOCRIT 27.1 % (36.0-47.0); HEMOGLOBIN 8.8 g/dl (12.0-15.5)
[2021-11-22 20:00] VITALS: BP 112/57
[2021-11-22] MEDS ORDERED: NITROFURANTOIN (MACROBID) 100 MG CAP PO SCH (21:00)
[2021-11-22 23:10] LABS: HEMATOCRIT 26.2 % (36.0-47.0); HEMOGLOBIN 8.7 g/dl (12.0-15.5)
[2021-11-23] VITALS: BP 121/50
[2021-11-23 04:00] VITALS: BP 124/59
[2021-11-23 05:37] LABS: BASO % 0.1 % (0.0-1.0); HEMOGLOBIN 8.4 g/dl (12.0-15.5); LYMPH # 1.2 10^3/uL (1.5-5.0); LYMPH % 8.6 % (24.0-44.0); MEAN CORPUSCULAR HEMOGLOBIN 27.6 pg (27.0-33.0); MEAN CORPUSCULAR HGB CONC 32.3 g/dl (32.0-36.5); MEAN CORPUSCULAR VOLUME 85.5 fl (80.0-96.0); MONO % 6.9 % (2.0-8.0); NEUTROPHILS # 11.8 10^3/uL (1.5-8.5); NEUTROPHILS % 83.8 % (36.0-66.0); PLATELET COUNT, AUTOMATED 305 10^3/uL (150-450); RED BLOOD COUNT 3.04 10^6/uL (4.00-5.40)
[2021-11-23 05:59] LABS: BLOOD UREA NITROGEN 17 MG/DL (7-18); CALCIUM LEVEL 8.8 MG/DL (8.8-10.2); CARBON DIOXIDE LEVEL 25 MEQ/L (21-32); CHLORIDE LEVEL 111 MEQ/L (98-107); CREATININE FOR GFR 0.64 MG/DL (0.55-1.30); GLOMERULAR FILTRATION RATE > 60.0 (>39); GLUCOSE, FASTING 136 MG/DL (70-100); POTASSIUM SERUM 4.6 MEQ/L (3.5-5.1); SODIUM LEVEL 141 MEQ/L (136-145)
[2021-11-23 06:00] VITALS: BP 124/62
[2021-11-23 08:00] VITALS: BP 118/56
[2021-11-23] MEDS: FERROUS SULFATE 325MG TAB PO SCH (08:06)
[2021-11-23] MEDS: PANTOPRAZOLE 40MG VIAL IV SCH (08:06)
[2021-11-23] MEDS: VITAMIN D 1,000 INTERNATIONAL UNITS TABLET PO SCH (08:07)
[2021-11-23] MEDS: CEPHALEXIN 250MG CAPSULE PO SCH (08:07)
[2021-11-23] MEDS ORDERED: ACET650T15 PO (11:11)
== END 2021-11-23 12:07 | disposition home health service (06) | DRG 663 ==
LOC: M ED 15:13 → M ED INP 19:50 → M PCU 22:03
PROVIDERS: ADMIT Family Medicine; ATTEND Internal Medicine
PROC: 30233N1 Transfusion of Nonautologous Red Blood Cells into Peripheral Vein, Percutaneous Approach (ICD-10-PCS; 2021-11-20)
PROC: 0TCB8ZZ Extirpation of Matter from Bladder, Via Natural or Artificial Opening Endoscopic (ICD-10-PCS; 2021-11-22)
PROC: 0W3R8ZZ Control Bleeding in Genitourinary Tract, Via Natural or Artificial Opening Endoscopic (ICD-10-PCS; principal; 2021-11-22 14:00)
DX: N30.41 Irradiation cystitis with hematuria (principal); Z68.1 Body mass index [BMI] 19.9 or less, adult; K92.2 Gastrointestinal hemorrhage, unspecified; E46 Unspecified protein-calorie malnutrition; R64 Cachexia; D62 Acute posthemorrhagic anemia; M06.9 Rheumatoid arthritis, unspecified; F17.200 Nicotine dependence, unspecified, uncomplicated; I73.9 Peripheral vascular disease, unspecified; Z85.41 Personal history of malignant neoplasm of cervix uteri; Z92.21 Personal history of antineoplastic chemotherapy; Z92.3 Personal history of irradiation; Z86.16 Personal history of COVID-19; Z98.42 Cataract extraction status, left eye; Z95.820 Peripheral vascular angioplasty status with implants and grafts; D72.829 Elevated white blood cell count, unspecified; Z79.899 Other long term (current) drug therapy; R62.7 Adult failure to thrive

== ENCOUNTER 2021-11-30 12:32 | Emergency (ER) | payer MEDICARE ==
[~2021-11-30] VITALS: Ht 157.5 cm; Wt 31.8 kg
[~2021-11-30 12:32] MED LIST changes: -AMOX500C PO
[2021-11-30] MEDS ORDERED: AMOX500C PO (12:42)
[2021-11-30 16:06] VITALS: BP 146/77
== END 2021-11-30 16:08 | disposition home or self-care (01) ==
LOC: M ED 12:32
DX: R78.81 Bacteremia (principal); D72.829 Elevated white blood cell count, unspecified; M06.9 Rheumatoid arthritis, unspecified; Z85.41 Personal history of malignant neoplasm of cervix uteri; Z86.16 Personal history of COVID-19; Z79.899 Other long term (current) drug therapy; F17.210 Nicotine dependence, cigarettes, uncomplicated

== ENCOUNTER → 2021-11-30 | Outpatient (CLI) | payer MEDICARE ==
[~2021-11-30] MED LIST changes: +ACET650T15 PO; +AMOX500C PO; +ATOR80TA59 PO; +CELE1CAP9 PO; +IRON65TA2 PO; +PANT40TA29 PO; +VITA100093 PO
[2021-11-30 11:01] LABS: BASO # 0.1 10^3/uL (0.0-0.2); BASO % 0.9 % (0.0-1.0); EOS # 0.3 10^3/uL (0.0-0.5); EOS % 2.3 % (0.0-3.0); HEMATOCRIT 33.4 % (36.0-47.0); HEMOGLOBIN 10.5 g/dl (12.0-15.5); LYMPH # 1.8 10^3/uL (1.5-5.0); LYMPH % 12.6 % (24.0-44.0); MEAN CORPUSCULAR HEMOGLOBIN 28.7 pg (27.0-33.0); MEAN CORPUSCULAR HGB CONC 31.4 g/dl (32.0-36.5); MEAN CORPUSCULAR VOLUME 91.3 fl (80.0-96.0); MONO # 1.1 10^3/uL (0.0-0.8); MONO % 7.6 % (2.0-8.0); NEUTROPHILS # 10.8 10^3/uL (1.5-8.5); PLATELET COUNT, AUTOMATED 559 10^3/uL (150-450); RED BLOOD COUNT 3.66 10^6/uL (4.00-5.40); WHITE BLOOD COUNT 14.3 10^3/uL (4.0-10.0)
[2021-11-30 11:23] LABS: ALBUMIN 3.1 GM/DL (3.2-5.2); ALT/SGPT 17 U/L (12-78); BILIRUBIN,TOTAL 0.3 MG/DL (0.2-1.0); BLOOD UREA NITROGEN 15 MG/DL (7-18); C REACTIVE PROTEIN QUANTITATIV 0.54 MG/DL (0.00-0.30); CALCIUM LEVEL 9.9 MG/DL (8.8-10.2); CARBON DIOXIDE LEVEL 27 MEQ/L (21-32); CHLORIDE LEVEL 105 MEQ/L (98-107); CREATININE FOR GFR 0.75 MG/DL (0.55-1.30); GLOMERULAR FILTRATION RATE > 60.0 (>39); GLUCOSE, FASTING 138 MG/DL (70-100); SODIUM LEVEL 139 MEQ/L (136-145); TOTAL PROTEIN 6.8 GM/DL (6.4-8.2)
== END ==
LOC: M PLALAB 10:10
PROVIDERS: ATTEND Physician Assistant
DX: R78.81 Bacteremia (principal)

== ENCOUNTER 2022-02-03 13:36 | Inpatient (IN) | payer MEDICARE ==
[2022-02-03] VITALS (7 sets, daily range): BP systolic 133–160; BP diastolic 61–80
[~2022-02-03] VITALS: Ht 157.5 cm; Wt 48.6 kg
[~2022-02-03 13:36] MED LIST changes: +AMOX500C PO
[2022-02-03] MEDS ORDERED: ATOR80TA59 PO (13:51)
[2022-02-03 14:20] LABS: BASO # 0.1 10^3/uL (0.0-0.2); BASO % 0.9 % (0.0-1.0); EOS # 0.2 10^3/uL (0.0-0.5); EOS % 1.4 % (0.0-3.0); HEMATOCRIT 30.3 % (36.0-47.0); HEMOGLOBIN 9.7 g/dl (12.0-15.5); LYMPH # 2.6 10^3/uL (1.5-5.0); LYMPH % 16.7 % (24.0-44.0); MEAN CORPUSCULAR HEMOGLOBIN 30.3 pg (27.0-33.0); MEAN CORPUSCULAR VOLUME 94.7 fl (80.0-96.0); MONO # 1.2 10^3/uL (0.0-0.8); NEUTROPHILS # 11.1 10^3/uL (1.5-8.5); NEUTROPHILS % 72.5 % (36.0-66.0); PLATELET COUNT, AUTOMATED 458 10^3/uL (150-450); WHITE BLOOD COUNT 15.3 10^3/uL (4.0-10.0)
[2022-02-03 14:42] LABS: BLOOD UREA NITROGEN 21 MG/DL (7-18); CALCIUM LEVEL 10.2 MG/DL (8.8-10.2); CARBON DIOXIDE LEVEL 23 MEQ/L (21-32); CHLORIDE LEVEL 108 MEQ/L (98-107); CREATININE FOR GFR 0.95 MG/DL (0.55-1.30); GLOMERULAR FILTRATION RATE > 60.0 (>39); GLUCOSE, FASTING 163 MG/DL (70-100); POTASSIUM SERUM 4.6 MEQ/L (3.5-5.1); SODIUM LEVEL 142 MEQ/L (136-145)
[2022-02-03] MEDS ORDERED: NS 1,000 ML IV ONE (15:05)
[2022-02-03 15:23] LABS: ALBUMIN 3.1 GM/DL (3.2-5.2); ALT/SGPT 12 U/L (12-78); BILIRUBIN,DIRECT < 0.1 MG/DL (0.0-0.2); BILIRUBIN,TOTAL 0.1 MG/DL (0.2-1.0); TOTAL PROTEIN 6.9 GM/DL (6.4-8.2)
[2022-02-03] MEDS ORDERED: QC A650T3 PO (15:24)
[2022-02-03] MEDS ORDERED: HOME MED LIST COMPLETE! XX SCH (15:25)
[2022-02-03] MEDS: GASTROGRAFIN SOLUTION 30ML PO SCH ×2 (15:40→15:57)
[2022-02-03 16:12] LABS: BILIRUBIN, URINE MANUAL NEGATIVE (NEGATIVE); GLUCOSE, URINE (UA) MANUAL NEGATIVE (NEGATIVE); KETONE, URINE MANUAL NEGATIVE (NEGATIVE); UROBILINOGEN, URINE MANUAL NORMAL (NORMAL)
[2022-02-03 16:13] LABS: INR 0.97; PROTHROMBIN TIME 13.3 SECONDS (12.7-14.5)
[2022-02-03 16:16] LABS: RBC, URINE TNTC /hpf (0-3)
[2022-02-03 16:17] LABS: SQUAMOUS EPITHELIAL CELL URINE NONE SEEN /hpf (SMALL AMT)
[2022-02-03 16:18] LABS: BACTERIA, URINE NONE SEEN; HYALINE CAST, URINE NONE SEEN /lpf (0-1); PARTIAL THROMBOPLASTIN TIME 28.3 SECONDS (25.9-37.0)
[2022-02-03] MEDS ORDERED: ISOVUE-370 76% 100ML VIAL As Ordered ONE (16:50)
[2022-02-03 18:34] LABS: HEMATOCRIT 23.4 % (36.0-47.0)
[2022-02-03 18:45] LABS: HEMOGLOBIN 7.4 g/dl (12.0-15.5)
[2022-02-03] MEDS ORDERED: HYDROMORPHONE HCL 0.5 MG/ 0.5 ML SYRINGE (J1170 PER 1) IV PRN (20:15)
[2022-02-03] MEDS ORDERED: ALBUTEROL 90 MCG/ACT 8GM HFA INHALER INH PRN (20:15)
[2022-02-03] MEDS: PANTOPRAZOLE 40MG TAB (PROTONIX) PO SCH (21:00)
[2022-02-03] MEDS: NS 1,000 ML IV SCH (22:50)
[2022-02-04] VITALS (15 sets, daily range): BP systolic 123–157; BP diastolic 60–73
[2022-02-04 04:28] LABS: HEMATOCRIT 38.3 % (36.0-47.0); MEAN CORPUSCULAR HEMOGLOBIN 30.6 pg (27.0-33.0); MEAN CORPUSCULAR HGB CONC 33.7 g/dl (32.0-36.5); RED BLOOD COUNT 4.21 10^6/uL (4.00-5.40)
[2022-02-04 04:35] LABS: HEMOGLOBIN 12.9 g/dl (12.0-15.5); PLATELET COUNT, AUTOMATED 246 10^3/uL (150-450)
[2022-02-04 04:57] LABS: ALBUMIN 2.6 GM/DL (3.2-5.2); ALT/SGPT 11 U/L (12-78); BILIRUBIN,TOTAL 1.3 MG/DL (0.2-1.0); BLOOD UREA NITROGEN 15 MG/DL (7-18); CARBON DIOXIDE LEVEL 22 MEQ/L (21-32); CHLORIDE LEVEL 113 MEQ/L (98-107); CREATININE FOR GFR 0.65 MG/DL (0.55-1.30); FERRITIN 67 NG/ML (8-252); GLOMERULAR FILTRATION RATE > 60.0 (>39); GLUCOSE, FASTING 90 MG/DL (70-100); IRON (FE) 248 UG/DL (50-170); MAGNESIUM LEVEL 1.8 MG/DL (1.8-2.4); PERCENT SATURATION 94.7 % (13.2-45.0); PHOSPHORUS LEVEL 3.2 MG/DL (2.5-4.9); POTASSIUM SERUM 4.2 MEQ/L (3.5-5.1); SODIUM LEVEL 144 MEQ/L (136-145); TOTAL IRON BINDING CAPACITY 262 UG/DL (250-450); TOTAL PROTEIN 5.7 GM/DL (6.4-8.2)
[2022-02-04] MEDS: NS 1,000 ML IV SCH (06:15)
[2022-02-04 07:50] LABS: HEMOGLOBIN 12.9 g/dl (12.0-15.5)
[2022-02-04] MEDS: IPRATROPIUM 0.5MG/ALBUTEROL 2.5MG INH SOL UD 3ML (DUONEB) NEB SCH ×4 (08:00→19:43)
[2022-02-04] MEDS: NICOTINE 14 MG/24 HR TRANSDERMAL TD SCH (09:00)
[2022-02-04] MEDS: PANTOPRAZOLE 40MG TAB (PROTONIX) PO SCH ×2 (09:00→21:42)
[2022-02-04] MEDS ORDERED: dexameTHASONE 4 MG/ML 1ML VIAL (J1100 PER 1MG) As Ordered ONE (09:03)
[2022-02-04] MEDS ORDERED: ONDANSETRON 4MG/2ML VIAL As Ordered ONE (09:03)
[2022-02-04] MEDS ORDERED: LIDOCAINE 2% 100MG/5ML SDV (FOR ANES.) As Ordered ONE (09:03)
[2022-02-04] MEDS ORDERED: propofoL 200 MG/20 ML VIAL As Ordered ONE (09:03)
[2022-02-04] MEDS ORDERED: MIDAZOLAM INJ 2MG/2ML VIAL (J2250 PER 1MG) As Ordered ONE (09:04)
[2022-02-04] MEDS ORDERED: fentaNYL 100 MCG/2 ML INJECTION As Ordered ONE (09:04)
[2022-02-04] MEDS ORDERED: ceFAZolin 2 GM/D5W 50 ML IV BAG (J0690 PER 500MG) As Ordered ONE (09:14)
[2022-02-04] MEDS ORDERED: ceFAZolin SOD 2 GM in IV 1 EA IV ONE (09:15)
[2022-02-04] MEDS ORDERED: ETOMIDATE INJ 20MG/10ML VIAL As Ordered ONE (09:38)
[2022-02-04] MEDS ORDERED: PHENYLephrine 500MCG 5ML (100MCG/ML) SYRINGE As Ordered ONE (09:59)
[2022-02-04 15:37] LABS: HEMATOCRIT 37.8 % (36.0-47.0); HEMOGLOBIN 12.7 g/dl (12.0-15.5)
[2022-02-04 23:39] LABS: HEMATOCRIT 34.5 % (36.0-47.0); HEMOGLOBIN 11.7 g/dl (12.0-15.5)
[2022-02-05] VITALS: BP 118/75
[2022-02-05 04:00] VITALS: BP 123/59
[2022-02-05 05:49] LABS: BASO % 0.3 % (0.0-1.0); EOS % 0.1 % (0.0-3.0); HEMATOCRIT 34.5 % (36.0-47.0); HEMOGLOBIN 11.6 g/dl (12.0-15.5); LYMPH % 13.9 % (24.0-44.0); MEAN CORPUSCULAR HGB CONC 33.6 g/dl (32.0-36.5); MEAN CORPUSCULAR VOLUME 89.1 fl (80.0-96.0); MONO # 1.4 10^3/uL (0.0-0.8); MONO % 9.5 % (2.0-8.0); NEUTROPHILS # 10.9 10^3/uL (1.5-8.5); NEUTROPHILS % 75.7 % (36.0-66.0); PLATELET COUNT, AUTOMATED 242 10^3/uL (150-450); RED BLOOD COUNT 3.87 10^6/uL (4.00-5.40); WHITE BLOOD COUNT 14.4 10^3/uL (4.0-10.0)
[2022-02-05 06:14] LABS: BLOOD UREA NITROGEN 22 MG/DL (7-18); CALCIUM LEVEL 8.5 MG/DL (8.8-10.2); CARBON DIOXIDE LEVEL 23 MEQ/L (21-32); CHLORIDE LEVEL 111 MEQ/L (98-107); CREATININE FOR GFR 0.73 MG/DL (0.55-1.30); GLOMERULAR FILTRATION RATE > 60.0 (>39); GLUCOSE, FASTING 96 MG/DL (70-100); MAGNESIUM LEVEL 1.7 MG/DL (1.8-2.4); SODIUM LEVEL 141 MEQ/L (136-145)
[2022-02-05] MEDS ORDERED: MAG SULF 1GM/100ML (MAG RUN) 1 GM in IV 1 EA IV ONE (08:00)
[2022-02-05] MEDS: PANTOPRAZOLE 40MG TAB (PROTONIX) PO SCH (08:16)
[2022-02-05] MEDS: NICOTINE 14 MG/24 HR TRANSDERMAL TD SCH (08:17)
[2022-02-05] MEDS: IPRATROPIUM 0.5MG/ALBUTEROL 2.5MG INH SOL UD 3ML (DUONEB) NEB SCH (08:29)
[2022-02-05 08:47] VITALS: BP 140/65
== END 2022-02-05 10:25 | disposition home or self-care (01) | DRG 663 ==
LOC: M ED 13:36 → M ED INP 20:15 → M PCU 22:16
PROVIDERS: ADMIT Internal Medicine; ATTEND Internal Medicine
PROC: 30233N1 Transfusion of Nonautologous Red Blood Cells into Peripheral Vein, Percutaneous Approach (ICD-10-PCS; 2022-02-03)
PROC: 0TCB8ZZ Extirpation of Matter from Bladder, Via Natural or Artificial Opening Endoscopic (ICD-10-PCS; 2022-02-04)
PROC: 0W3R8ZZ Control Bleeding in Genitourinary Tract, Via Natural or Artificial Opening Endoscopic (ICD-10-PCS; principal; 2022-02-04 17:00)
DX: N30.41 Irradiation cystitis with hematuria (principal); E46 Unspecified protein-calorie malnutrition; D62 Acute posthemorrhagic anemia; F17.210 Nicotine dependence, cigarettes, uncomplicated; E78.00 Pure hypercholesterolemia, unspecified; Z85.41 Personal history of malignant neoplasm of cervix uteri; Z79.899 Other long term (current) drug therapy

== ENCOUNTER → 2022-02-24 | Outpatient (CLI) | payer MEDICARE ==
[~2022-02-24] MED LIST changes: +QC A650T3 PO
[2022-02-24 17:50] LABS: BASO # 0.1 10^3/uL (0.0-0.2); BASO % 0.9 % (0.0-1.0); EOS # 0.3 10^3/uL (0.0-0.5); EOS % 2.7 % (0.0-3.0); HEMATOCRIT 41.3 % (36.0-47.0); HEMOGLOBIN 13.3 g/dl (12.0-15.5); LYMPH % 17.8 % (24.0-44.0); MEAN CORPUSCULAR HEMOGLOBIN 30.2 pg (27.0-33.0); MEAN CORPUSCULAR HGB CONC 32.2 g/dl (32.0-36.5); MEAN CORPUSCULAR VOLUME 93.9 fl (80.0-96.0); MONO # 0.8 10^3/uL (0.0-0.8); MONO % 7.2 % (2.0-8.0); NEUTROPHILS # 7.8 10^3/uL (1.5-8.5); NEUTROPHILS % 70.9 % (36.0-66.0); PLATELET COUNT, AUTOMATED 435 10^3/uL (150-450)
[2022-02-24 18:01] LABS: ALBUMIN 3.3 GM/DL (3.2-5.2); ALT/SGPT 11 U/L (12-78); BILIRUBIN,TOTAL 0.2 MG/DL (0.2-1.0); BLOOD UREA NITROGEN 16 MG/DL (7-18); CALCIUM LEVEL 9.6 MG/DL (8.8-10.2); CARBON DIOXIDE LEVEL 25 MEQ/L (21-32); CHLORIDE LEVEL 107 MEQ/L (98-107); CREATININE FOR GFR 0.72 MG/DL (0.55-1.30); FERRITIN 119 NG/ML (8-252); GLOMERULAR FILTRATION RATE > 60.0 (>39); GLUCOSE, FASTING 102 MG/DL (70-100); IRON (FE) 69 UG/DL (50-170); PERCENT SATURATION 23.9 % (13.2-45.0); POTASSIUM SERUM 4.4 MEQ/L (3.5-5.1); SODIUM LEVEL 139 MEQ/L (136-145); TOTAL IRON BINDING CAPACITY 289 UG/DL (250-450); TOTAL PROTEIN 7.3 GM/DL (6.4-8.2)
[2022-02-24 18:15] LABS: TOTAL 25(OH) VITAMIN D 56.8 NG/ML (30.0-100.0); VITAMIN B12 LEVEL 357 PG/ML
== END ==
LOC: M LAB 16:58
PROVIDERS: ATTEND Physician Assistant
DX: D64.9 Anemia, unspecified (principal); Z79.899 Other long term (current) drug therapy

== ENCOUNTER → 2022-09-28 | Outpatient (CLI) | payer MEDICARE ==
[2022-09-28 18:32] LABS: C REACTIVE PROTEIN QUANTITATIV < 0.40 MG/DL (<1.0)
[2022-09-28 18:33] LABS: IRON (FE) 115 UG/DL (50-170); PERCENT SATURATION 39.7 % (13.2-45.0); TOTAL IRON BINDING CAPACITY 290 UG/DL (250-425)
[2022-09-28 18:44] LABS: ALBUMIN 3.5 G/DL (3.2-5.2); ALKALINE PHOSPHATASE 78 U/L (46-116); ALT/SGPT < 9 U/L (7.0-40); AST/SGOT 19 U/L (<34); BILIRUBIN,TOTAL 0.2 MG/DL (0.3-1.2); BLOOD UREA NITROGEN 18 MG/DL (9-23); CALCIUM LEVEL 9.6 MG/DL (8.3-10.6); CARBON DIOXIDE LEVEL 25 MMOL/L (20-31); CHLORIDE LEVEL 104 MMOL/L (98-107); CHOLESTEROL LEVEL 195 MG/DL (<200); CHOLESTEROL RISK RATIO 3.97 (<5); CREATININE FOR GFR 0.72 MG/DL (0.55-1.30); FERRITIN 75.6 NG/ML (7.3-270.7); FOLATE 11.7 NG/ML (>5.4); FREE T4 1.51 NG/DL (0.89-1.76); GLOMERULAR FILTRATION RATE > 60.0 (>39); GLUCOSE, FASTING 105 MG/DL (74-106); HDL CHOLESTEROL 49.1 MG/DL (>40); LDL CHOLESTEROL 104.1 MG/DL (<100); NON-HDL-C 146 MG/DL; POTASSIUM SERUM 4.3 MMOL/L (3.5-5.1); SODIUM LEVEL 138 MMOL/L (136-145); THYROID STIMULATING HORMONE 1.757 uIU/ML (0.55-4.78); TOTAL 25(OH) VITAMIN D 59.8 NG/ML (20.0-100.0); TOTAL PROTEIN 6.2 G/DL (5.7-8.2); TRIGLYCERIDES LEVEL 209 MG/DL (<150); VITAMIN B12 LEVEL 361 PG/ML (211-911)
[2022-09-28 18:50] LABS: RHEUMATOID FACTOR QUANT 260.6 IU/ML (<14)
[2022-09-28 19:20] LABS: HEMOGLOBIN A1c 4.9 % (4.0-6.0)
== END ==
LOC: M PLALAB 14:28
PROVIDERS: ATTEND Physician Assistant
DX: M17.11 Unilateral primary osteoarthritis, right knee (principal); D64.9 Anemia, unspecified; M00.861 Arthritis due to other bacteria, right knee; M06.9 Rheumatoid arthritis, unspecified; I70.232 Atherosclerosis of native arteries of right leg with ulceration of calf; Z79.899 Other long term (current) drug therapy

== ENCOUNTER → 2022-09-30 | Outpatient (REF) | payer MEDICARE ==
[2022-09-30 11:56] LABS: BASO # 0.1 10^3/uL (0.0-0.2); BASO % 1.2 % (0.0-1.0); EOS # 0.4 10^3/uL (0.0-0.5); EOS % 3.3 % (0.0-3.0); HEMATOCRIT 38.3 % (36.0-47.0); HEMOGLOBIN 12.3 g/dl (12.0-15.5); LYMPH # 2.2 10^3/uL (1.5-5.0); LYMPH % 18.9 % (24.0-44.0); MEAN CORPUSCULAR HEMOGLOBIN 30.1 pg (27.0-33.0); MEAN CORPUSCULAR HGB CONC 32.1 g/dl (32.0-36.5); MEAN CORPUSCULAR VOLUME 93.9 fl (80.0-96.0); MONO % 8.2 % (2.0-8.0); NEUTROPHILS % 68.1 % (36.0-66.0); PLATELET COUNT, AUTOMATED 402 10^3/uL (150-450); RED BLOOD COUNT 4.08 10^6/uL (4.00-5.40); WHITE BLOOD COUNT 11.7 10^3/uL (4.0-10.0)
== END ==
LOC: M LAB REF 11:00
PROVIDERS: ATTEND Physician Assistant
DX: D64.9 Anemia, unspecified (principal); M00.861 Arthritis due to other bacteria, right knee; M06.9 Rheumatoid arthritis, unspecified; I70.232 Atherosclerosis of native arteries of right leg with ulceration of calf

== ENCOUNTER 2022-12-30 09:29 | Inpatient (IN) | payer MEDICARE ==
[~2022-12-30] VITALS: Ht 157.5 cm; Wt 40.5 kg
[2022-12-30] MEDS ORDERED: ISOVUE-370 76% 100ML VIAL As Ordered ONE (09:51)
[2022-12-30 10:10] LABS: BASO # 0.1 10^3/uL (0.0-0.2); EOS # 0.3 10^3/uL (0.0-0.5); EOS % 2.8 % (0.0-3.0); HEMATOCRIT 33.2 % (36.0-47.0); HEMOGLOBIN 10.8 g/dl (12.0-15.5); LYMPH # 1.8 10^3/uL (1.5-5.0); LYMPH % 17.7 % (24.0-44.0); MEAN CORPUSCULAR HEMOGLOBIN 30.8 pg (27.0-33.0); MEAN CORPUSCULAR HGB CONC 32.5 g/dl (32.0-36.5); MEAN CORPUSCULAR VOLUME 94.6 fl (80.0-96.0); MONO # 0.9 10^3/uL (0.0-0.8); MONO % 8.3 % (2.0-8.0); NEUTROPHILS # 7.2 10^3/uL (1.5-8.5); NEUTROPHILS % 69.9 % (36.0-66.0); PLATELET COUNT, AUTOMATED 360 10^3/uL (150-450); RED BLOOD COUNT 3.51 10^6/uL (4.00-5.40); WHITE BLOOD COUNT 10.3 10^3/uL (4.0-10.0)
[2022-12-30 10:29] LABS: INR 0.91; PROTHROMBIN TIME 12.5 SECONDS (12.5-14.5)
[2022-12-30 10:30] LABS: CK-MB VALUE MASS < 1.0 NG/ML (<3.6); PARTIAL THROMBOPLASTIN TIME 25.8 SECONDS (24.8-34.2)
[2022-12-30 10:31] LABS: LIPASE 23 U/L (12-53)
[2022-12-30 10:33] LABS: ALBUMIN 3.1 G/DL (3.2-5.2); ALKALINE PHOSPHATASE 78 U/L (46-116); ALT/SGPT 11 U/L (7.0-40); AST/SGOT 17 U/L (<34); BILIRUBIN,DIRECT < 0.1 MG/DL (<0.4); BILIRUBIN,TOTAL 0.2 MG/DL (0.3-1.2); BLOOD UREA NITROGEN 17 MG/DL (9-23); CALCIUM LEVEL 8.7 MG/DL (8.3-10.6); CARBON DIOXIDE LEVEL 24 MMOL/L (20-31); CHLORIDE LEVEL 104 MMOL/L (98-107); CREATININE FOR GFR 0.72 MG/DL (0.55-1.30); GLOMERULAR FILTRATION RATE > 60.0 (>39); GLUCOSE, FASTING 118 MG/DL (74-106); POTASSIUM SERUM 4.6 MMOL/L (3.5-5.1); SODIUM LEVEL 135 MMOL/L (136-145); TOTAL PROTEIN 6.2 G/DL (5.7-8.2)
[2022-12-30 10:34] LABS: THYROID STIMULATING HORMONE 1.234 uIU/ML (0.55-4.78)
[2022-12-30 10:35] LABS: FREE T4 1.28 NG/DL (0.89-1.76)
[2022-12-30 10:38] LABS: RSV AMPLIFICATION NEGATIVE (NEGATIVE)
[2022-12-30 10:39] LABS: CPK CREATINE PHOSPHOKINASE 54 U/L (34-145); MB/CK RELATIVE INDEX 1.85 (< OR =4)
[2022-12-30 11:59] LABS: CK-MB VALUE MASS < 1.0 NG/ML (<3.6)
[2022-12-30 12:03] LABS: CPK CREATINE PHOSPHOKINASE 62 U/L (34-145); MB/CK RELATIVE INDEX 1.61 (< OR =4)
[2022-12-30] MEDS ORDERED: ACET-716 PO (12:27)
[2022-12-30] MEDS ORDERED: HOME MED LIST COMPLETE! XX SCH (12:30)
[2022-12-30] MEDS ORDERED: amLODIPine 5 MG TAB PO ONE (16:50)
[2022-12-30 18:00] VITALS: BP 170/88
[2022-12-30] MEDS ORDERED: LORazepam 2 MG/ML 1ML VIAL IV STA (19:22)
[2022-12-30] MEDS ORDERED: ATORVASTATIN 20 MG TAB PO SCH (21:00)
[2022-12-30 22:05] VITALS: BP 120/73
[2022-12-30] MEDS ORDERED: KETOROLAC 30 MG/ML 1ML VIAL IV PRN (22:40)
[2022-12-30] MEDS ORDERED: ACETAMINOPHEN TAB 650MG DOSE (2X325MG) PO PRN (22:40)
[2022-12-30] MEDS: METOPROLOL TART 12.5 MG PER 1/2 TAB PO SCH (23:07)
[2022-12-30] MEDS: VITAMIN D 1,000 INTERNATIONAL UNITS TABLET PO SCH (23:07)
[2022-12-30] MEDS: PANTOPRAZOLE 40MG TAB (PROTONIX) PO SCH (23:07)
[2022-12-31] MEDS: METOPROLOL TART 12.5 MG PER 1/2 TAB PO SCH ×3 (05:32→11:59)
[2022-12-31 06:00] VITALS: BP 124/75
[2022-12-31] MEDS ORDERED: FERROUS SULFATE 325MG TAB PO SCH (09:00)
[2022-12-31] MEDS ORDERED: METOPROLOL TART 25 MG TABLET PO SCH (09:00)
[2022-12-31] MEDS ORDERED: amLODIPine 5 MG TAB PO SCH (09:00)
[2022-12-31] MEDS ORDERED: ASPIRIN 81MG CHEW TABLET PO SCH (09:00)
[2022-12-31] MEDS: PANTOPRAZOLE 40MG TAB (PROTONIX) PO SCH (09:33)
[2022-12-31] MEDS: VITAMIN D 1,000 INTERNATIONAL UNITS TABLET PO SCH (09:33)
[2022-12-31] MEDS ORDERED: METO1TAB87 PO (12:05)
[2022-12-31] MEDS ORDERED: SELF1KIT MC (12:05)
[2022-12-31] MEDS ORDERED: ASPI81CH8 PO (12:05)
[2022-12-31] MEDS ORDERED: ISOVUE-370 76% 100ML VIAL As Ordered ONE (13:04)
[2022-12-31 13:26] VITALS: BP 159/80
[2023-01-02] MEDS ORDERED: METO1TAB87 PO (08:27)
[2023-01-02] MEDS ORDERED: ASPI81CH33 PO (08:27)
== END 2022-12-31 14:42 | disposition left against medical advice (07) | DRG 948 ==
LOC: M ED 09:29 → EDBD 09:29 → M ED INP 12:43 → ENRESERV 16:06 → M MSPAV 17:57
PROVIDERS: ADMIT General Practice; ATTEND General Practice
PROC: B246ZZZ Ultrasonography of Right and Left Heart (ICD-10-PCS; principal; 2022-12-30)
DX: R53.1 Weakness (principal); E46 Unspecified protein-calorie malnutrition; I67.82 Cerebral ischemia; D64.9 Anemia, unspecified; I77.1 Stricture of artery; J43.2 Centrilobular emphysema; I10 Essential (primary) hypertension; K21.9 Gastro-esophageal reflux disease without esophagitis; E78.00 Pure hypercholesterolemia, unspecified; F17.210 Nicotine dependence, cigarettes, uncomplicated; J47.9 Bronchiectasis, uncomplicated; F41.9 Anxiety disorder, unspecified; F32.A Depression, unspecified; J32.0 Chronic maxillary sinusitis; R26.89 Other abnormalities of gait and mobility; E55.9 Vitamin D deficiency, unspecified; Z92.3 Personal history of irradiation; M16.12 Unilateral primary osteoarthritis, left hip; R31.0 Gross hematuria; M17.12 Unilateral primary osteoarthritis, left knee; I73.9 Peripheral vascular disease, unspecified; Z86.16 Personal history of COVID-19; Z85.41 Personal history of malignant neoplasm of cervix uteri; Z92.21 Personal history of antineoplastic chemotherapy; Z95.828 Presence of other vascular implants and grafts

== ENCOUNTER → 2023-08-09 | Outpatient (CLI) | payer MEDICARE ==
[~2023-08-09] MED LIST changes: +ACET-716 PO; +ASPI81CH33 PO; +ASPI81CH8 PO; +CEFD1CAP9 PO; +CELE0.09 PO; -CELE1CAP9 PO; +SELF1KIT MC
[2023-08-09 17:32] LABS: BASO # 0.1 10^3/uL (0.0-0.2); BASO % 0.9 % (0.0-1.0); EOS # 0.4 10^3/uL (0.0-0.5); EOS % 2.7 % (0.0-3.0); HEMATOCRIT 39.1 % (36.0-47.0); HEMOGLOBIN 12.7 g/dl (12.0-15.5); LYMPH # 2.5 10^3/uL (1.5-5.0); LYMPH % 19.8 % (24.0-44.0); MEAN CORPUSCULAR HEMOGLOBIN 30.7 pg (27.0-33.0); MEAN CORPUSCULAR HGB CONC 32.5 g/dl (32.0-36.5); MEAN CORPUSCULAR VOLUME 94.4 fl (80.0-96.0); MONO # 0.9 10^3/uL (0.0-0.8); MONO % 7.2 % (2.0-8.0); NEUTROPHILS # 8.9 10^3/uL (1.5-8.5); NEUTROPHILS % 69.1 % (36.0-66.0); PLATELET COUNT, AUTOMATED 370 10^3/uL (150-450); RED BLOOD COUNT 4.14 10^6/uL (4.00-5.40); WHITE BLOOD COUNT 12.9 10^3/uL (4.0-10.0)
[2023-08-09 17:56] LABS: C REACTIVE PROTEIN QUANTITATIV < 0.40 MG/DL (<1.0)
[2023-08-09 17:58] LABS: ALBUMIN 3.7 G/DL (3.2-5.2); ALKALINE PHOSPHATASE 73 U/L (46-116); ALT/SGPT < 9 U/L (7.0-40); AST/SGOT 13 U/L (<34); BILIRUBIN,TOTAL 0.2 MG/DL (0.3-1.2); BLOOD UREA NITROGEN 11 MG/DL (9-23); CALCIUM LEVEL 10.2 MG/DL (8.3-10.6); CARBON DIOXIDE LEVEL 27 MMOL/L (20-31); CHLORIDE LEVEL 107 MMOL/L (98-107); FOLATE 14.4 NG/ML (>5.4); GLOMERULAR FILTRATION RATE > 60.0 (>39); GLUCOSE, FASTING 121 MG/DL (74-106); POTASSIUM SERUM 4.7 MMOL/L (3.5-5.1); SODIUM LEVEL 141 MMOL/L (136-145); TOTAL PROTEIN 6.7 G/DL (5.7-8.2)
[2023-08-09 17:59] LABS: FERRITIN 90.7 NG/ML (7.3-270.7); IRON (FE) 94 UG/DL (50-170); PERCENT SATURATION 33.3 % (13.2-45.0); THYROID STIMULATING HORMONE 1.487 uIU/ML (0.55-4.78); TOTAL 25(OH) VITAMIN D 53.3 NG/ML (20.0-100.0); TOTAL IRON BINDING CAPACITY 282 UG/DL (250-425)
[2023-08-09 18:00] LABS: FREE T4 1.46 NG/DL (0.89-1.76)
[2023-08-09 18:02] LABS: ERYTHROCYTE SEDIMENTATION RATE 44 mm/hr (0-30)
[2023-08-09 19:32] LABS: VITAMIN B12 LEVEL 341 PG/ML (211-911)
== END ==
LOC: M PLALAB 15:30
PROVIDERS: ATTEND Physician Assistant
DX: I70.232 Atherosclerosis of native arteries of right leg with ulceration of calf (principal); D64.9 Anemia, unspecified; E55.9 Vitamin D deficiency, unspecified; Z79.899 Other long term (current) drug therapy

== ENCOUNTER → 2023-09-27 | Outpatient (REF) | payer MEDICARE ==
[2023-09-27 14:44] LABS: BASO # 0.1 10^3/uL (0.0-0.2); BASO % 0.9 % (0.0-1.0); EOS # 0.8 10^3/uL (0.0-0.5); EOS % 6.8 % (0.0-3.0); HEMATOCRIT 32.7 % (36.0-47.0); HEMOGLOBIN 10.5 g/dl (12.0-15.5); LYMPH # 1.3 10^3/uL (1.5-5.0); LYMPH % 11.9 % (24.0-44.0); MEAN CORPUSCULAR HGB CONC 32.1 g/dl (32.0-36.5); MEAN CORPUSCULAR VOLUME 96.5 fl (80.0-96.0); MONO # 0.9 10^3/uL (0.0-0.8); NEUTROPHILS # 8.1 10^3/uL (1.5-8.5); PLATELET COUNT, AUTOMATED 532 10^3/uL (150-450); RED BLOOD COUNT 3.39 10^6/uL (4.00-5.40); WHITE BLOOD COUNT 11.2 10^3/uL (4.0-10.0)
[2023-09-27 15:18] LABS: ALBUMIN 2.4 G/DL (3.2-5.2); ALKALINE PHOSPHATASE 83 U/L (46-116); ALT/SGPT 14 U/L (7.0-40); AST/SGOT 19 U/L (<34); BILIRUBIN,TOTAL 0.3 MG/DL (0.3-1.2); BLOOD UREA NITROGEN 12 MG/DL (9-23); CALCIUM LEVEL 8.7 MG/DL (8.3-10.6); CARBON DIOXIDE LEVEL 26 MMOL/L (20-31); CHLORIDE LEVEL 105 MMOL/L (98-107); CREATININE FOR GFR 0.64 MG/DL (0.55-1.30); GLOMERULAR FILTRATION RATE > 60.0 (>39); GLUCOSE, FASTING 112 MG/DL (74-106); POTASSIUM SERUM 4.7 MMOL/L (3.5-5.1); SODIUM LEVEL 137 MMOL/L (136-145); TOTAL PROTEIN 5.6 G/DL (5.7-8.2)
== END ==
LOC: M LAB REF 13:48
DX: Z48.812 Encounter for surgical aftercare following surgery on the circulatory system (principal)

== ENCOUNTER → 2023-10-02 | Outpatient (REF) | payer MEDICARE ==
[2023-10-02 15:19] LABS: BASO # 0.1 10^3/uL (0.0-0.2); BASO % 0.8 % (0.0-1.0); EOS # 0.3 10^3/uL (0.0-0.5); EOS % 2.6 % (0.0-3.0); HEMATOCRIT 34.9 % (36.0-47.0); HEMOGLOBIN 11.1 g/dl (12.0-15.5); LYMPH # 1.3 10^3/uL (1.5-5.0); LYMPH % 11.9 % (24.0-44.0); MEAN CORPUSCULAR HEMOGLOBIN 30.2 pg (27.0-33.0); MEAN CORPUSCULAR HGB CONC 31.8 g/dl (32.0-36.5); MEAN CORPUSCULAR VOLUME 95.1 fl (80.0-96.0); MONO # 0.9 10^3/uL (0.0-0.8); MONO % 8.2 % (2.0-8.0); NEUTROPHILS # 8.3 10^3/uL (1.5-8.5); PLATELET COUNT, AUTOMATED 443 10^3/uL (150-450); RED BLOOD COUNT 3.67 10^6/uL (4.00-5.40)
[2023-10-02 15:41] LABS: ALBUMIN 2.3 G/DL (3.2-5.2); ALKALINE PHOSPHATASE 82 U/L (46-116); ALT/SGPT < 9 U/L (7.0-40); AST/SGOT 12 U/L (<34); BILIRUBIN,TOTAL 0.2 MG/DL (0.3-1.2); BLOOD UREA NITROGEN 10 MG/DL (9-23); CALCIUM LEVEL 8.7 MG/DL (8.3-10.6); CARBON DIOXIDE LEVEL 24 MMOL/L (20-31); CHLORIDE LEVEL 103 MMOL/L (98-107); CREATININE FOR GFR 0.64 MG/DL (0.55-1.30); GLOMERULAR FILTRATION RATE > 60.0 (>39); GLUCOSE, FASTING 93 MG/DL (74-106); POTASSIUM SERUM 4.1 MMOL/L (3.5-5.1); SODIUM LEVEL 135 MMOL/L (136-145); TOTAL PROTEIN 5.6 G/DL (5.7-8.2)
== END ==
LOC: M LAB REF 14:48
PROVIDERS: ATTEND Student in an Organized Health Care Education/Training Program
DX: Z48.812 Encounter for surgical aftercare following surgery on the circulatory system (principal)

== ENCOUNTER → 2023-10-09 | Outpatient (REF) | payer MEDICARE ==
[2023-10-09 14:32] LABS: BASO # 0.1 10^3/uL (0.0-0.2); BASO % 0.9 % (0.0-1.0); EOS # 0.4 10^3/uL (0.0-0.5); EOS % 2.8 % (0.0-3.0); HEMATOCRIT 34.2 % (36.0-47.0); LYMPH # 1.4 10^3/uL (1.5-5.0); LYMPH % 11.4 % (24.0-44.0); MEAN CORPUSCULAR HEMOGLOBIN 30.1 pg (27.0-33.0); MEAN CORPUSCULAR HGB CONC 32.2 g/dl (32.0-36.5); MEAN CORPUSCULAR VOLUME 93.7 fl (80.0-96.0); MONO # 0.7 10^3/uL (0.0-0.8); MONO % 5.7 % (2.0-8.0); NEUTROPHILS # 9.9 10^3/uL (1.5-8.5); NEUTROPHILS % 78.7 % (36.0-66.0); PLATELET COUNT, AUTOMATED 449 10^3/uL (150-450); RED BLOOD COUNT 3.65 10^6/uL (4.00-5.40); WHITE BLOOD COUNT 12.5 10^3/uL (4.0-10.0)
[2023-10-09 14:44] LABS: ALBUMIN 2.5 G/DL (3.2-5.2); ALKALINE PHOSPHATASE 76 U/L (46-116); ALT/SGPT < 9 U/L (7.0-40); AST/SGOT 12 U/L (<34); BILIRUBIN,TOTAL 0.2 MG/DL (0.3-1.2); BLOOD UREA NITROGEN 9 MG/DL (9-23); CALCIUM LEVEL 8.6 MG/DL (8.3-10.6); CARBON DIOXIDE LEVEL 26 MMOL/L (20-31); CHLORIDE LEVEL 108 MMOL/L (98-107); CREATININE FOR GFR 0.63 MG/DL (0.55-1.30); GLOMERULAR FILTRATION RATE > 60.0 (>39); GLUCOSE, FASTING 159 MG/DL (74-106); POTASSIUM SERUM 4.1 MMOL/L (3.5-5.1); SODIUM LEVEL 139 MMOL/L (136-145); TOTAL PROTEIN 5.7 G/DL (5.7-8.2)
== END ==
LOC: M LAB REF 13:07
PROVIDERS: ATTEND Student in an Organized Health Care Education/Training Program
DX: Z48.812 Encounter for surgical aftercare following surgery on the circulatory system (principal)

== ENCOUNTER → 2023-10-22 | Outpatient (REF) | payer MEDICARE | LOC: M LAB REF 09:14 | PROVIDERS: ATTEND Emergency Medicine | DX: R19.7 Diarrhea, unspecified (principal) ==

== ENCOUNTER → 2023-12-07 | Outpatient (REF) | payer MEDICARE | LOC: M LAB REF 11:26 | PROVIDERS: ATTEND Physician Assistant | DX: L03.314 Cellulitis of groin (principal); I73.9 Peripheral vascular disease, unspecified ==

== ENCOUNTER 2023-12-27 15:57 | Emergency (ER) | payer MEDICARE ==
[~2023-12-27] VITALS: Ht 157.5 cm; Wt 43.2 kg
[2023-12-27 17:13] LABS: BASO # 0.1 10^3/uL (0.0-0.2); BASO % 0.3 % (0.0-1.0); EOS # 0.1 10^3/uL (0.0-0.5); EOS % 0.3 % (0.0-3.0); HEMATOCRIT 31.8 % (36.0-47.0); HEMOGLOBIN 10.6 g/dl (12.0-15.5); LYMPH # 1.4 10^3/uL (1.5-5.0); LYMPH % 3.7 % (24.0-44.0); MEAN CORPUSCULAR HEMOGLOBIN 29.1 pg (27.0-33.0); MEAN CORPUSCULAR HGB CONC 33.3 g/dl (32.0-36.5); MEAN CORPUSCULAR VOLUME 87.4 fl (80.0-96.0); MONO # 1.9 10^3/uL (0.0-0.8); MONO % 5.3 % (2.0-8.0); NEUTROPHILS # 32.5 10^3/uL (1.5-8.5); NEUTROPHILS % 89.5 % (36.0-66.0); PLATELET COUNT, AUTOMATED 489 10^3/uL (150-450); RED BLOOD COUNT 3.64 10^6/uL (4.00-5.40)
[2023-12-27 17:14] LABS: WHITE BLOOD COUNT 36.3 10^3/uL (4.0-10.0)
[2023-12-27 17:24] LABS: INR 1.21; PARTIAL THROMBOPLASTIN TIME 32.7 SECONDS (24.8-34.2); PROTHROMBIN TIME 14.9 SECONDS (12.5-14.5)
[2023-12-27] MEDS: NS 1,000 ML IV ONE ×2 (17:45→20:19)
[2023-12-27 17:51] LABS: ALBUMIN 2.2 G/DL (3.2-5.2); ALKALINE PHOSPHATASE 107 U/L (46-116); ALT/SGPT < 9 U/L (7.0-40); AST/SGOT 11 U/L (<34); BILIRUBIN,DIRECT 0.2 MG/DL (<0.4); BILIRUBIN,TOTAL 0.3 MG/DL (0.3-1.2); BLOOD UREA NITROGEN 10 MG/DL (9-23); CALCIUM LEVEL 8.1 MG/DL (8.3-10.6); CARBON DIOXIDE LEVEL 22 MMOL/L (20-31); CHLORIDE LEVEL 104 MMOL/L (98-107); CREATININE FOR GFR 0.56 MG/DL (0.55-1.30); GLOMERULAR FILTRATION RATE > 60.0 (>39); GLUCOSE, FASTING 105 MG/DL (74-106); POTASSIUM SERUM 3.6 MMOL/L (3.5-5.1); SODIUM LEVEL 135 MMOL/L (136-145); TOTAL PROTEIN 5.6 G/DL (5.7-8.2)
[2023-12-27] MEDS ORDERED: ISOVUE-370 76% 100ML VIAL As Ordered ONE (17:57)
[2023-12-27] MEDS: PIPERACILLIN/TAZOBACTAM SOD 4.5 GM in D5W MINI-BAG PLUS 50 ML IV ONE (20:17)
[2023-12-27] MEDS: MORPHINE 2 MG/ML 1ML VIAL IV ONE (20:18)
[2023-12-27 21:16] LABS: RSV AMPLIFICATION NEGATIVE (NEGATIVE)
[2023-12-27] MEDS ORDERED: HEPARIN SOD (PORCINE) 5000UNITS/ML 1ML VIAL/SYRINGE IV PRN (22:45)
[2023-12-27] MEDS: HEPARIN SOD (PORCINE) 5000UNITS/ML 1ML VIAL/SYRINGE IV ONE (23:24)
[2023-12-27] MEDS: HEPARIN DRIP 25,000 UNITS in IV 1 EA IV SCH (23:27)
[2023-12-28] MEDS: MORPHINE 2 MG/ML 1ML VIAL IV ONE (00:44)
[2023-12-28 01:15] VITALS: BP 124/57; TEMP 97.4; O2SAT 99
== END 2023-12-28 01:11 | disposition short-term general hospital (02) ==
LOC: EDBD 15:57 → M ED 15:57
DX: M79.605 Pain in left leg (principal); I70.92 Chronic total occlusion of artery of the extremities; F41.9 Anxiety disorder, unspecified; F32.A Depression, unspecified; Z79.1 Long term (current) use of non-steroidal anti-inflammatories (NSAID); Z79.899 Other long term (current) drug therapy
CPT/HCPCS: 71045; 75635; 80047; 80048; 80076; 81001; 83605; 85025; 85610; 85730; 87040; 87070; 87077; 87086; 87186; 87205; 87631; 93005; 93041; 96365; 96366; 96374; 96375; 96376; 99285; J2543; Q9967